=== PATIENT | female | born 1965 | race Caucasian/White ===

== ENCOUNTER 2016-08-07 16:36 | Observation (INO) ==
--- NOTE | 2016-08-07 16:48 | Emergency Department Note ---
Disposition Clinical Impression: Chest pain, Diabetes, Obesity, Hypertension, Hyperlipidemia, Abnormal EKG, Lactic acidosis Disposition: Admitted As Inpatient Condition: Fair Referrals: NO,PCP [Non-Partnered Physician] - Forms: ED Satisfaction Letter General Adult HPI - General Chief complaint: ED Chest Pain Stated complaint: chest pain Time Seen by Provider: 08/07/16 16:45 - History of Present Illness HPI Narrative: 50-year-old female reports to the emergency department via EMS concerned with chest pain mostly on the left side. The pain started while she was walking today. She is known to be diabetic hypertensive and hypercholesterolemic. She states she has not had any cardiac testing for 10 years. She has never had a cardiac stent or known NH. She has no history of PE DVT or cancer. The patient recently had a gallbladder evaluation which was negative. She describes no abdominal pain vomiting or diarrhea. The patient states her primary care physician thinks she may have Parkinson's disease, she has had intermittent stuttering or dysarthria over the last 30 days and she reports she is scheduled for a neurologic evaluation. She has no personal history of brain aneurysm or tumor or brain surgery. She denies any previous brain imaging.. The patient has had no unilateral arm weakness or numbness no history of confusion or mejia acute dysarthria or sudden visual changes. No confusion or seizure. The patient has had no cough or fever or syncope. He patient reports her chest pain started about a half hour prior to arrival. EMS reports an EKG which shows sinus tachycardia. - Related Data Home Medications Medication Instructions Recorded Confirmed Albuterol Sulfate [Albuterol 2 puff IH Q4H PRN 08/07/16 08/07/16 Inhaler] Aspirin Enteric Coated [Aspirin EC] 81 mg PO DAILY 08/07/16 08/07/16 Dicyclomine [Bentyl] 20 mg PO QID 08/07/16 08/07/16 Estradiol [Estrace] 1 mg PO DAILY 08/07/16 08/07/16 Glimepiride [Amaryl] 2 mg PO QAM 08/07/16 08/07/16 Nystatin POWDER [Nystop] 1 appl TP TID PRN 08/07/16 08/07/16 Omeprazole [PriLOSEC] 20 mg PO DAILY 08/07/16 08/07/16 Sertraline [Zoloft] 50 mg PO DAILY 08/07/16 08/07/16 Simvastatin [Zocor] 10 mg PO HS 08/07/16 08/07/16 hydroCHLOROthiazide 12.5 mg PO DAILY 08/07/16 08/07/16 [Hydrochlorothiazide] Allergies Allergy/AdvReac Type Severity Reaction Status Date / Time No Known Allergies Allergy Verified 06/18/16 17:37 All systems ED: reviewed and negative except as stated. 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 Absent: scleral icterus, conjunctival injection, miosis, mydriasis - ENT ENT exam: normal exam, normal oropharynx, mucous membranes moist, TM's normal bilaterally, normal external ear exam - Neck Neck exam: Present: normal inspection, full ROM, trachea midline. Absent: tenderness - Chest Chest inspection: Present: symmetric chest wall rise. Absent: tenderness - Respiratory Respiratory exam: Present: normal lung sounds bilaterally. Absent: respiratory distress, wheezes, accessory muscle use, prolonged expiratory phase - Cardiovascular Cardiovascular exam: Present: regular rate, normal rhythm, normal heart sounds - Abdominal Exam Abdominal exam: Present: soft, Non-Tender, normal bowel sounds. Absent: tenderness, distention, guarding, rebound, rigidity, pulsatile mass - Extremities Exam Extremities exam: Present: normal inspection, full ROM, normal capillary refill. Absent: tenderness, pedal edema, joint swelling, calf tenderness - Expanded Lower Extremity Exam Lower leg exam: Absent: Homans' sign Neurovascular/Tendon exam: Present: normal capillary refill. Absent: motor deficit, sensory deficit, tendon deficit, extremity cold to touch, pallor - Back Exam Back exam: Present: normal inspection, full ROM. Absent: tenderness, CVA tenderness (R), CVA tenderness (L), vertebral tenderness - Neurological Exam Neurological exam: Present: alert, oriented X3, CN II-XII intact. Absent: motor sensory deficit - Psychiatric Psychiatric exam: Present: normal affect, normal mood - Skin Skin exam: Present: warm, dry, intact, normal color. Absent: rash, cyanosis, diaphoresis, erythema, pallor, mottled Course Vital Signs Temperature 98.3 F 08/07/16 16:40 Pulse Rate 92 08/07/16 16:40 Respiratory Rate 18 08/07/16 16:40 Blood Pressure 137/71 08/07/16 16:40 O2 Sat by Pulse Oximetry 96 08/07/16 16:40 Temperature 98.3 F 08/07/16 16:40 Pulse Rate 92 08/07/16 16:40 Respiratory Rate 18 08/07/16 16:40 Blood Pressure 137/71 08/07/16 16:40 O2 Sat by Pulse Oximetry 96 08/07/16 16:40 Oxygen Delivery Oxygen Delivery Room Air Medical Decision Making - MDM Narrative Medical decision making narrative: The patient is complaining of chest pain, her EKG is abnormal, she has a history of diabetes, hypertension, and hyperlipidemia, she is somewhat obese and has not had cardiac testing for about 10 years. The patient does have an element of lactic acidosis possibly secondary to diabetic medications. Blood cultures and a urinalysis have been ordered and are pending. Aspirin was ordered. The patient declined need for pain medications otherwise. Based on the patient's significant risk factors for acute coronary syndrome in the setting of a chest pain, I thought it would be appropriate to admit the patient to the hospital. I discussed the case with the hospitalist who has accepted the patient to their care. We reviewed the elevated lactate, fluid therapy has been given, white blood cell count normal with no differential shift, CRP low, chest x-ray negative, afebrile, we have elected to order blood cultures and assess urinalysis and repeat lactate. The patient describes no abdominal pain, I detect no skin rash, she denies headache or neck stiffness. Currently we have no clear source for infection, the lactic acidosis may be noninfectious in nature. We have elected to forego antibiotic therapy until if/when a clear source of infection is detected. - Lab Data Lab results reviewed: Yes I reviewed the patient's lab results. Result diagrams: 08/07/16 17:11 08/07/16 17:11 Lab Results 08/07/16 08/07/16 08/07/16 Range/Units 17:11 17:11 17:11 WBC (4.3-11.1) K/mcL RBC (3.82-4.97) M/mcL Hgb (11.5-15.4) g/dL Hct (35.3-44.9) % MCV (83.0-100.0) fL MCH (28.0-33.3) pg MCHC (31.6-35.5) g/dL RDW (11.5-14.5) % Plt Count (140-400) K/mcL MPV (9.4-12.4) fL Immature Gran % (0-4) % Seg Neutrophils % % Lymphocytes % % Monocytes % % Eosinophils % % Basophils % % Neutrophils # (1.6-8.9) K/mcL Lymphocytes # (0.6-4.6) K/mcL Monocytes # (0.0-1.3) K/mcL Eosinophils # (0.0-0.6) K/mcL Basophils # (0.0-0.2) K/mcL PT 9.7 (9.4-12.1) Seconds INR 0.9 APTT 28.1 (26.0-36.0) Seconds D-Dimer 374 (0-500) ng/mLFEU Sodium 143 (136-145) mEq/L Potassium 3.8 (3.5-4.5) mEq/L Chloride 108 (98-109) mEq/L Carbon Dioxide 24 (19-29) mEq/L BUN 10 (7-20) mg/dL Creatinine 0.82 (0.57-1.11) mg/dL Est GFR ( Amer) > 60 (> 60) Est GFR (Non-Af Amer) > 60 (> 60) BUN/Creatinine Ratio 12 (6-26) Glucose 252 H (70-99) mg/dL Calculated Osmolality 304 H (280-300) Lactic Acid 3.0 H (0.5-2.2) mmol/L Calcium 9.4 (8.6-10.8) mg/dL Total Bilirubin 0.2 (0.2-1.2) mg/dL Direct Bilirubin 0.1 (0.0-0.5) mg/dL Indirect Bilirubin 0.1 (0.0-1.2) mg/dL AST 19 (5-34) Units/L ALT 19 (0-55) Units/L Alkaline Phosphatase 67 (38-126) Units/L Troponin I (0-0.03) ng/mL C-Reactive Protein 9 H (Less than 5) mg/L Serum Total Protein 6.9 (6.0-8.3) g/dL Albumin 3.3 L (3.5-5.0) g/dL Globulin 3.6 H (2.4-3.5) g/dL Albumin/Globulin Ratio 0.9 L (1.1-2.2) Lipase 26 (8-78) Units/L 08/07/16 08/07/16 Range/Units 17:11 17:11 WBC 8.8 (4.3-11.1) K/mcL RBC 4.15 (3.82-4.97) M/mcL Hgb 12.2 (11.5-15.4) g/dL Hct 36.5 (35.3-44.9) % MCV 88.0 (83.0-100.0) fL MCH 29.4 (28.0-33.3) pg MCHC 33.4 (31.6-35.5) g/dL RDW 13.3 (11.5-14.5) % Plt Count 265 (140-400) K/mcL MPV 11.3 (9.4-12.4) fL Immature Gran % 0.3 (0-4) % Seg Neutrophils % 65.5 % Lymphocytes % 26.7 % Monocytes % 5.1 % Eosinophils % 1.8 % Basophils % 0.6 % Neutrophils # 5.7 (1.6-8.9) K/mcL Lymphocytes # 2.3 (0.6-4.6) K/mcL Monocytes # 0.5 (0.0-1.3) K/mcL Eosinophils # 0.2 (0.0-0.6) K/mcL Basophils # 0.1 (0.0-0.2) K/mcL PT (9.4-12.1) Seconds INR APTT (26.0-36.0) Seconds D-Dimer (0-500) ng/mLFEU Sodium (136-145) mEq/L Potassium (3.5-4.5) mEq/L Chloride (98-109) mEq/L Carbon Dioxide (19-29) mEq/L BUN (7-20) mg/dL Creatinine (0.57-1.11) mg/dL Est GFR ( Amer) (> 60) Est GFR (Non-Af Amer) (> 60) BUN/Creatinine Ratio (6-26) Glucose (70-99) mg/dL Calculated Osmolality (280-300) Lactic Acid (0.5-2.2) mmol/L Calcium (8.6-10.8) mg/dL Total Bilirubin (0.2-1.2) mg/dL Direct Bilirubin (0.0-0.5) mg/dL Indirect Bilirubin (0.0-1.2) mg/dL AST (5-34) Units/L ALT (0-55) Units/L Alkaline Phosphatase (38-126) Units/L Troponin I 0.00 (0-0.03) ng/mL C-Reactive Protein (Less than 5) mg/L Serum Total Protein (6.0-8.3) g/dL Albumin (3.5-5.0) g/dL Globulin (2.4-3.5) g/dL Albumin/Globulin Ratio (1.1-2.2) Lipase (8-78) Units/L - Radiology Data Radiology results reviewed: Yes I reviewed the patient's radiology results.
[2016-08-07] MEDS ORDERED: Aspirin 325 MG TABLET PO ONE (17:12)
[2016-08-07 17:31] LABS: Basophils # 0.1 K/mcL (0.0-0.2); Basophils % 0.6 %; Eosinophils # 0.2 K/mcL (0.0-0.6); Eosinophils % 1.8 %; Hematocrit 36.5 % (35.3-44.9); Hemoglobin 12.2 g/dL (11.5-15.4); Immature Granulocytes % 0.3 % (0-4); Lymphocytes # 2.3 K/mcL (0.6-4.6); Lymphocytes % 26.7 %; Mean Corpuscular HGB Conc 33.4 g/dL (31.6-35.5); Mean Corpuscular Hemoglobin 29.4 pg (28.0-33.3); Mean Platelet Volume 11.3 fL (9.4-12.4); Monocytes # 0.5 K/mcL (0.0-1.3); Monocytes % 5.1 %; Neutrophils # 5.7 K/mcL (1.6-8.9); Platelet Count 265 K/mcL (140-400); Red Blood Count 4.15 M/mcL (3.82-4.97); Red Cell Distribution Width 13.3 % (11.5-14.5); Segmented Neutrophils % 65.5 %
[2016-08-07 17:36] LABS: INR 0.9; Prothrombin Time 9.7 Seconds (9.4-12.1)
[2016-08-07 17:39] LABS: Activated Partial Thrombo Time 28.1 Seconds (26.0-36.0)
[2016-08-07 17:49] LABS: Alanine Aminotransferase 19 Units/L (0-55); Albumin 3.3 g/dL (3.5-5.0); Albumin/Globulin Ratio 0.9 (1.1-2.2); Alkaline Phosphatase 67 Units/L (38-126); Aspartate Amino Transferase 19 Units/L (5-34); BUN/Creatinine Ratio 12 (6-26); Bilirubin,Direct 0.1 mg/dL (0.0-0.5); Bilirubin,Indirect 0.1 mg/dL (0.0-1.2); Bilirubin,Total 0.2 mg/dL (0.2-1.2); Blood Urea Nitrogen 10 mg/dL (7-20); Calcium 9.4 mg/dL (8.6-10.8); Carbon Dioxide 24 mEq/L (19-29); Chloride 108 mEq/L (98-109); Globulin 3.6 g/dL (2.4-3.5); Glucose 252 mg/dL (70-99); Lipase 26 Units/L (8-78); Osmolality,Calculated 304 (280-300); Potassium 3.8 mEq/L (3.5-4.5); Sodium 143 mEq/L (136-145); Total Protein 6.9 g/dL (6.0-8.3); eGFR For African Americans > 60 (> 60); eGFR For Non-African Americans > 60 (> 60)
[2016-08-07 18:25] LABS: C-Reactive Protein 9 mg/L (Less than 5)
[2016-08-07] MEDS ORDERED: 0.9 % Sodium Chloride 1,000 ML IVC ONE ×2 (18:27→20:09)
[2016-08-07 21:29] LABS: Bilirubin,Urine Negative (Negative); Blood,Urine Negative (Negative); Clarity,Urine Clear (Clear); Color,Urine Yellow (Yellow); Glucose,Urine (UA) 500 mg/dL (Normal); Ketones,Urine Trace mg/dL (Negative); Leukocyte Esterase,Urine Trace (Negative); Nitrite,Urine Negative (Negative); PH,Urine 5.5 pH Units (5.0-8.0); Protein,Urine Negative (Neg-Trace); Specific Gravity,Urine > 1.030 (1.010-1.025); Urobilinogen,Urine Normal (Normal)
[2016-08-07 21:31] LABS: Bacteria,Urine Few per hpf (None-Few); Hyaline Casts,Urine None Seen per lpf (None-Few); RBC,Urine 0-3 per hpf (0-3); Squamous Epithelial Cell,Urine Many per lpf (None-Few)
[2016-08-07 21:40] LABS: Mucus,Urine Few (Few)
[2016-08-07] MEDS ORDERED: Naloxone 0.4 MG/ML INJ IVP PRN (22:44)
--- NOTE | 2016-08-07 23:00 | Internal Med History&Physical ---
Date of Encounter: 08/07/16 Time of Encounter: 22:55 Assessment and Plan (1) Dysarthria Current visit: Yes Status: Acute With reported garbled speech with associated lightheadedness and dizziness on morning of admission. Still with word finding difficulty on exam. Head CT negative. She does have risk factors for CVA/TIA. Brain MRI, echo, carotids, TSH, lipid panel, Hgb A1c pending. Continue home ASA, statin. Consult neurology if needed. Permissive hypertension for now (2) Chest pain Current visit: Yes Status: Acute That occurred on day of admission. Initial troponin negative, EKG without acute ST changes. Last stress test has been over 10 years ago. Low suspicion for ACS as chest pain is reproducible on exam, however she does have risk factors. Cycle troponin check echo and stress test. Consult cardiology if needed Qualifiers: Chest pain type: unspecified Qualified Code(s): R07.9 - Chest pain, unspecified (3) Lactic acidosis Current visit: Yes Status: Acute Lactic acid 3 on arrival, trended down to 1.8. Etiology unknown. No obvious infectious source. Chest x-ray nonacute. Afebrile, no elevated WBC. Check UA. (4) Hypertension Current visit: Yes Status: Acute Per history holding home BP medications to allow for permissive hypertension. Resume in 24-48 hours or if MRI is negative for acute CVA Qualifiers: Hypertension type: essential hypertension Qualified Code(s): I10 - Essential (primary) hypertension (5) Diabetes Current visit: Yes Status: Acute Per history. Control unknown. Hold home oral hypoglycemics. Sliding scale insulin while inpatient. 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 LDL pending Qualifiers: Qualified Code(s): E78.5 - Hyperlipidemia, unspecified (7) DVT prophylaxis Current visit: Yes Status: Acute [facility] Internal Medicine - H&P: HPI Chief complaint: Chest pain lightheadedness dizziness and garbled speech Plans for Post Hospital Care: Home History of present illness: Ms. Kirkpatrick is a 50 year old female with past medical history diabetes hypertension hyperlipidemia and depression who presented to [facility] on 08/07/2016 with complaints of chest pain garbled speech lightheadedness and dizziness. She was placed in observation status for CVA workup and ACS rule out. Information obtained from chart review and patient report. Patient says she felt lightheaded and dizzy off and on throughout the day she feels like her speech was garbled and she had trouble getting her words out. No numbness or tingling no vision changes. She says she was walking with her daughter when she had an acute onset of midsternal chest pain. Chest pain is described as sharp, rates it 7-8/10. Nothing makes better and pressing on her chest makes it worse. No shortness of breath no abdominal pain no nausea vomiting or diarrhea Past Med Surg Social Fam HX - Past Medical History Medical history: diabetes, hyperlipidemia, hypertension Psychiatric history: anxiety, depression - Social History Smoking Status: Never smoker Smokeless Tobacco Status: No Alcohol use: none Drug use: none - Family History Mother Hx Family Cardiac Disorders: No Hx Family Respiratory Disorders: No Hx Family Cancer: Yes (Melanoma) Hx Family GI Disorders: No Hx Family Genitourinary Disorders: No Hx Family Endocrine Disorder: No Hx Family Musculoskeletal Disorders: No Hx Family Neuromuscular Disorders: No Hx Family Neurologic Disorders: No Hx Family HEENT Disorders: No Hx Family Autoimmune Disorders: No Hx Family Reproductive Disorders: No Hx Family Psychosocial Disorders: No Hx Family Medical Disorders: No Internal Medicine - H&P: Meds Albuterol Sulfate [Albuterol Inhaler] 2 puff IH Q4H PRN 08/07/16 [History] Aspirin Enteric Coated [Aspirin EC] 81 mg PO DAILY 08/07/16 [History] Dicyclomine [Bentyl] 20 mg PO QID 08/07/16 [History] Estradiol [Estrace] 1 mg PO DAILY 08/07/16 [History] Glimepiride [Amaryl] 2 mg PO QAM 08/07/16 [History] Nystatin POWDER [Nystop] 1 appl TP TID PRN 08/07/16 [History] Omeprazole [PriLOSEC] 20 mg PO DAILY 08/07/16 [History] Sertraline [Zoloft] 50 mg PO DAILY 08/07/16 [History] Simvastatin [Zocor] 10 mg PO HS 08/07/16 [History] hydroCHLOROthiazide [Hydrochlorothiazide] 12.5 mg PO DAILY 08/07/16 [History] Allergies No Known Allergies Allergy (Verified 06/18/16 17:37) All Systems PM: A 10-system review of systems was performed and is negative for pertinent findings except as documented above in the HPI. - Constitutional Constitutional: no chills, no fever(s), no night sweats - EENT Eyes: no change in vision, no discharge, no pain, no photophobia Ears: no ear discharge, no ear pain, no tinnitus Nose, mouth and throat: no dysphagia, no nasal discharge, no neck pain, no sore throat - Cardiovascular Cardiovascular ROS IM: chest pain, no diaphoresis, no dyspnea, no lightheadedness, no palpitations, no syncope - Respiratory Respiratory: no cough, no dyspnea, no wheezing, no excessive phlegm production - Gastrointestinal Gastrointestinal: no abdominal pain, no diarrhea, no hematemesis, no hematochezia, no melena, no nausea, no vomiting - Genitourinary Genitourinary: no change in urinary stream, no dysuria, no flank pain, no hematuria - Musculoskeletal Musculoskeletal ROS IM: no numbness, no tingling - Integumentary Integumentary IM: no rash, no unusual bruising - Neurological Neurological ROS: abnormal speech, no confusion, no convulsions, no focal weakness, no numbness, no tingling, no tremor(s) - Hematologic/Lymphatic Hematologic/Lymphatic: no easy bruising - Constitutional Vitals: Temp Pulse Resp BP Pulse Ox 97.8 F 58 16 145/74 96 08/07/16 21:45 08/07/16 21:45 08/07/16 21:45 08/07/16 21:45 08/07/16 21:45 General appearance: Present: A&O X 3, no acute distress - Head Head exam: Present: atraumatic, normocephalic - Eye Eye exam: Present: PERRL, conjuntiva pink, sclera anicteric Pupils: Present: PERRL - Neck Neck exam general surgery: Present: supple, trachea midline. Absent: lymphadenopathy - Respiratory Respiratory exam: Present: CTAB. Absent: accessory muscle use, rales, rhonchi, wheezes - Cardiovascular Cardiovascular exam: Present: RRR, +S1, +S2. Absent: diastolic murmur, gallop, rubs, systolic murmur Additional comments: Chest pain with palpation - GI/Abdominal GI/Abdominal exam: Present: normal bowel sounds, soft, no peritoneal signs. Absent: distended, tenderness - Extremities Exam Extremities exam: Present: warm, radial pulses palpable and symetrical. Absent : calf tenderness, cyanotic, pedal edema - Neurological Exam Neurological exam: Present: alert, altered, CN II-XII intact, oriented X3, no focal deficits, strengths equal and symetr throughout. Absent: pronater drift, facial droop, speech deficit - Skin Skin exam: Present: dry, intact Internal Med - H&P Results - Labs CBC & Chem 7: 08/07/16 17:11 08/07/16 17:11 Labs: Urine 08/07/16 Range/Units 21:15 Urine Color Yellow (Yellow) Urine Clarity Clear (Clear) Urine pH 5.5 (5.0-8.0) pH Units Ur Specific [place] > 1.030 H (1.010-1.025) Urine Protein Negative (Neg-Trace) mg/dL Urine Glucose (UA) 500 H (Normal) mg/dL
[2016-08-07] MEDS ORDERED: *HR* Dextrose 50 % in Water (Syg) 50 ML SYRINGE IVP PRN (23:18)
[2016-08-07] MEDS ORDERED: Dextrose Gel 15 GM PO PRN ×2 (23:18)
[2016-08-07] MEDS ORDERED: D5% in Water 1,000 ML IVC PRN (23:18)
[2016-08-07] MEDS ORDERED: *HR* Morphine 2 MG/ML SYRINGE IVP PRN (23:29)
[2016-08-08] MEDS ORDERED: *HR* Enoxaparin 30 MG/0.3 ML SYRINGE SQ SCH (06:00)
[2016-08-08] MEDS ORDERED: Regadenoson 0.4 MG/5 ML SYRINGE IVP ONE ×2 (06:31→06:33)
[2016-08-08 06:50] LABS: Basophils # 0.1 K/mcL (0.0-0.2); Basophils % 0.8 %; Eosinophils # 0.1 K/mcL (0.0-0.6); Eosinophils % 2.1 %; Hematocrit 34.4 % (35.3-44.9); Hemoglobin 11.1 g/dL (11.5-15.4); Immature Granulocytes % 0.3 % (0-4); Lymphocytes # 2.4 K/mcL (0.6-4.6); Lymphocytes % 37.8 %; Mean Corpuscular HGB Conc 32.3 g/dL (31.6-35.5); Mean Corpuscular Hemoglobin 29.3 pg (28.0-33.3); Mean Corpuscular Volume 90.8 fL (83.0-100.0); Mean Platelet Volume 11.3 fL (9.4-12.4); Monocytes # 0.4 K/mcL (0.0-1.3); Monocytes % 6.5 %; Neutrophils # 3.3 K/mcL (1.6-8.9); Platelet Count 244 K/mcL (140-400); Red Blood Count 3.79 M/mcL (3.82-4.97); Red Cell Distribution Width 13.5 % (11.5-14.5); Segmented Neutrophils % 52.5 %
[2016-08-08 07:05] LABS: Alanine Aminotransferase 18 Units/L (0-55); Albumin/Globulin Ratio 0.9 (1.1-2.2); Alkaline Phosphatase 61 Units/L (38-126); Aspartate Amino Transferase 15 Units/L (5-34); BUN/Creatinine Ratio 14 (6-26); Bilirubin,Total 0.3 mg/dL (0.2-1.2); Blood Urea Nitrogen 10 mg/dL (7-20); Calcium 8.8 mg/dL (8.6-10.8); Carbon Dioxide 27 mEq/L (19-29); Chloride 108 mEq/L (98-109); Chol/HDL Ratio 4.4 (0-4.9); Cholesterol 172 mg/dL (< 200); Globulin 3.3 g/dL (2.4-3.5); Glucose 130 mg/dL (70-99); HDL Cholesterol 39 mg/dL (40-59); LDL Cholesterol,Calculated 88 mg/dL (0-99); Osmolality,Calculated 297 (280-300); Potassium 3.7 mEq/L (3.5-4.5); Sodium 143 mEq/L (136-145); Total Protein 6.3 g/dL (6.0-8.3); Triglycerides 226 mg/dL (< 150); eGFR For African Americans > 60 (> 60); eGFR For Non-African Americans > 60 (> 60)
[2016-08-08] MEDS: Insulin LISPRO 300 UNITS/3 ML VIAL SQ SCH ×2 (07:24→12:44)
[2016-08-08 07:25] LABS: Thyroid Stimulating Hormone 2.736 mcIU/mL (0.350-4.840)
[2016-08-08 08:25] LABS: Hemoglobin A1C 7.9 %
[2016-08-08] MEDS ORDERED: Aspirin Enteric Coated 81 MG Tablet PO SCH (09:00)
--- NOTE | 2016-08-08 11:27 | Electrocardiograph Report ---
[address] [address] Test Date: 2016-08-07 Pat Name: Joanie Kirkpatrick Department: 104 Room: 3B54 Gender: F Returned Goods Sorter: AM : 1965 Requested By: Jensen Russell Order Number: [id number] Reading MD: Yesenia Marie Measurements Intervals [place] Rate: 91 P: 0 [place]: 171 QRS: 24 QRSD: 86 T: 46 QT: 351 QTc: 399 Interpretive Statements SINUS RHYTHM Electronically Signed On 08-08-2016 11:25:29 EDT by Yesenia Marie
--- NOTE | 2016-08-08 12:48 | Nuclear Medicine Stress Report ---
Regadenoson Nuclear Stress Name: Joanie Kirkpatrick Date of Study: 08/08/2016 Date: 1965 Ht: 70.0 in Medical Record#: [id number] Age: 50 Wt: Gender: Female Order #: [id number] Location: [facility] IP Room: [facility] Supervising Provider: Kristy Gomez CNP Reading Physician: Juany Nma DO Ordering Physician: Merlyn Ramsey CNP Primary Care Physician: Olivia Nunez MD Stress Technologist: Dread De Santiago CRT Clinical Research Scientist: Pradeep Nolan Indications: Chest Pain Impression: Perfusion imaging was negative for ischemia or infarct. Pharmacologic ECG was negative for ischemia at the level of heart rate achieved. Patient had 3-4/10 chest pain with pharmacologic stress. Gated EF = >70%. Recommend clinical correlation. History: Hypertension Diabetes Hypercholesteremia Stress Test Summary: Stress Test Type: Pharmacologic Baseline Information: Initial Heart Rate: 70 Blood Pressure: 130/80 Stress Information: Test Terminated Due to (primary): As per protocol Maximum Blood Pressure: 134/74 Maximum Heart Rate: 112 Percent Maximum Heart Rate Achieved: 65 Double Product: 15041 METS Reached: 1 Symptoms: Chest pain Nuclear Summary: SPECT myocardial perfusion imaging using Tc99m Sestamibi given intravenously was performed at rest and following cardiac stress testing. The resting images were obtained following initial dose of 11.7 mCi. Following stress an additional dose of 31.4 mCi was given at peak exercise or 30 seconds post regadenoson infusion. Medication Given: Time Medication Dose Units Route Findings: Stress Note * Resting ECG demonstrated normal sinus rhythm with nonspecific ST abnormalities. * Pharmacologic stress ECG is negative for ischemia at level of heart rate achieved. * No arrhythmias were noted during stress. * Patient complained of 3-4/10 chest pain during pharmacologic stress. Hemodynamic responses * Normal hemodynamic responses to pharmacologic stress. Study Quality * Study quality was fair. Left Ventricle * The left ventricle is not dilated. TID * No evidence of transient ischemic dilatation. Lung Uptake * There is no evidence of increase lung uptake. NORMALS * Normal wall motion. PERFUSION * There is a small sized, mild intensity fixed perfusion defect involving the apical lateral wall. Wall motion is normal. Findings represent artifact. * Other areas demonstrate normal rest and stress perfusion. Updated by Juany Nam on 08/08/2016 12:43:57 PM electronically signed on 08/08/2016 12:44:47 PM with status of Final
[2016-08-08 14:52] VITALS: BP 151/79
[2016-08-08] MEDS ORDERED: Sucralfate 1 GM TABLET PO ONE (15:11)
--- NOTE | 2016-08-08 15:26 | ECHO - Doppler Report ---
Echocardiogram Name: Joanie Kirkpatrick Date of Study: 08/08/2016 Date: 1965 Ht: 61.0 in Medical Record#: [id number] Age: 50 Wt: 211.0 lb Gender: Female BSA: 1.93 Order #: [id number] Location: [facility] Room #: 3B54 Reading Physician: Juany Nam DO Travel Sales Consultant: Merlyn Guadarrama RDCS, RVT Ordering Physician: Silke Mac CNP Primary Physician: Olivia Nunez MD Indications: Chest pain Impressions: LVEF 60%. Normal left ventricular size and systolic function. There is evidence of moderate diastolic dysfunction of the left ventricle. Normal right ventricular size and function. No significant valvular dysfunction. No pulmonary hypertension. Left Ventricular Wall Motion: Rest Echo Findings All wall segments showed normal motion. Findings: Study Quality * Technically challenging due to body habitus. ECG Findings * Normal sinus rhythm. Left Ventricle * Moderate left ventricular diastolic dysfunction. * Normal LV size and wall thickness. * LVEF 60%. Aorta * Normally sized aortic root. Left Atrium * Normal left atrial size. Aortic Valve * No aortic regurgitation. * Aortic valve not well visualized. * No aortic stenosis. Mitral Valve * Normal mitral valve structure. * No mitral regurgitation. * No mitral stenosis. Tricuspid Valve * Tricuspid valve not well visualized. * No tricuspid regurgitation. * Estimated RA pressure is 3 mmHg. Pulmonic Valve * Pulmonic valve is not well visualized. * No pulmonic stenosis. * Trace pulmonic regurgitation. Pulmonary Artery * Pulmonary artery not well visualized. Right Ventricle * Normal right ventricular structure and function. Right Atrium * Normal right atrial size. Pericardium * There is no pericardial effusion present. Interatrial Septum * Interatrial septum not well evaluated. IVC * Normal IVC dimensions and inspiratory collapse. History Hypertension Diabetes Hypercholesteremia 11-15-2014 a Previous Echo was performed. Measurements: BP: 129/ 83 2D Normal Values RVIDd: 2.20 cm <2.7 cm IVSd: 1.00 cm 0.6 - 1.0 cm LVIDd: 4.70 cm 3.7 - 5.6 cm LVPWd: .90 cm 0.6 - 1.1 cm LVIDs: 3.10 cm 1.5 - 3.6 cm LA: 3.70 cm 2.0 - 4.0cm %FS: 34.00 cm >25 % LA volume: 47 Mitral Valve Peak E:1.16 m/sec Peak A:1.05 m/sec E/A Ratio:1.1 Peak E' Lat Lui:8.29 cm/s Peak E' Med Lui:6.14 cm/s E/E' Lat Ratio:14 E/E' Med Ratio:18.9 Updated by Juany Nam on 08/08/2016 3:22:00 PM electronically signed on 08/08/2016 3:22:30 PM with status of Final Wall Motion Stephens: 1=Normal, 2=Hypokinesis, 3=Akinesis, 4=Dyskinesis, 5=Aneurysmal, 6=Hyperkinetic, X=Not Visualized (Blank)=Missing
--- NOTE | 2016-08-08 15:41 | Discharge Summary ---
Date of Encounter: 08/08/16 Time of Encounter: 15:00 - Discharge Diagnosis (1) Chest pain Priority: Primary Status: Acute Comments: Pt reports sudden onset epigastric/mid-sternal chest pain that began while walking with her daughter yesterday at about 1500. Pt denies radiation, n/v or diaphoresis. She said that it was dull. She has had this pain previously, for approx 6 mos. She denies any known pattern. When questioned, pt states that it did become worse after eating today, but is unable to recognize that with any other episode. . Troponin negative. Echo today shows LVEF 60%, normal systolic function, moderate diastolic dysfunction , no valvular dysfunction and no pulmonary htn. Stress test negative for ischemia or infarct, gated EF = >70%. Pain is reproduceable with palpation and she reports recent GI symptoms and treatment for GERD. I do believe that this is most likely GI related. Qualifiers: Chest pain type: unspecified Qualified Code(s): R07.9 - Chest pain, unspecified (2) GERD (gastroesophageal reflux disease) Priority: Secondary Status: Acute Comments: Chest pain reproduceable with palpation in epigastric area. Pt is treated with Omeprazole and Bentyl, however, she did have some confusion regarding whether or not she is taking the Bentyl or if it was discontinued by GI. Continue Omeprazole, add Carafate 1000mg tid. Qualifiers: Esophagitis presence: without esophagitis Qualified Code(s): K21.9 - Gastro -esophageal reflux disease without esophagitis (3) Diabetes Priority: Secondary Status: Chronic Comments: A1c 7.9. Pt states that she has an appt with staff development educator on 08/20 at [facility] office. Continue home medications. Qualifiers: Diabetes mellitus type: type 2 Diabetes mellitus complication status: with hyperglycemia Diabetes mellitus chcf insulin use: unspecified chcf insulin use status Qualified Code(s): E11.65 - Type 2 diabetes mellitus with hyperglycemia (4) Obesity Priority: Secondary Status: Chronic Comments: Chronic. Lifestyle changes. Pt has an appt with staff development educator on 08/20 at [facility]. Qualifiers: Obesity type: due to excess calories Obesity severity: morbid Qualified Code(s): E66.01 - Morbid (severe) obesity due to excess calories (5) Hypertension Priority: Secondary Status: Chronic Comments: Chronic. Continue home medications. Qualifiers: Hypertension type: essential hypertension Qualified Code(s): I10 - Essential (primary) hypertension (6) Hyperlipidemia Priority: Secondary Status: Chronic Comments: Chronic. Continue home medications. Qualifiers: Hyperlipidemia type: unspecified Qualified Code(s): E78.5 - Hyperlipidemia , unspecified (7) DVT prophylaxis Priority: Secondary Status: Acute Comments: lovenox sq (8) UTI (urinary tract infection) Priority: Secondary Status: Acute Comments: Patient has been treated empirically for a urinary tract infection. Urine showed a trace of leukocyte esterase, 5-15 white blood cells, few bacteria. Culture is pending. She has been getting Rocephin 1 g IV. Previous culture from June, shows that no pathogens were isolated. Will notify patient if culture is positive and will prescribe antibiotic as needed. Qualifiers: Urinary tract infection type: acute cystitis Hematuria presence: without hematuria Qualified Code(s): N30.00 - Acute cystitis without hematuria - Discharge Medications Prescriptions: Sucralfate [Carafate] 1 gm PO TID #120 tablet Home Medications: Albuterol Sulfate [Albuterol Inhaler] 2 puff IH Q4H PRN 08/07/16 [History] Aspirin Enteric Coated [Aspirin EC] 81 mg PO DAILY 08/07/16 [History] Dicyclomine [Bentyl] 20 mg PO QID 08/07/16 [History] Estradiol [Estrace] 1 mg PO DAILY 08/07/16 [History] Glimepiride [Amaryl] 2 mg PO QAM 08/07/16 [History] Nystatin POWDER [Nystop] 1 appl TP TID PRN 08/07/16 [History] Omeprazole [PriLOSEC] 20 mg PO DAILY 08/07/16 [History] Sertraline [Zoloft] 50 mg PO DAILY 08/07/16 [History] Simvastatin [Zocor] 10 mg PO HS 08/07/16 [History] hydroCHLOROthiazide [Hydrochlorothiazide] 12.5 mg PO DAILY 08/07/16 [History] Nitrofurantoin Monohyd/M-Cryst [Macrobid 100 mg Capsule] 100 mg PO BID #10 capsule 08/08/16 [Rx] Sucralfate [Carafate] 1 gm PO TID #120 tablet 08/08/16 [Rx] Allergies/Adverse Reactions: Allergies No Known Allergies Allergy (Verified 06/18/16 17:37) Procedures/tests Complete & Pending: Procedures Performed prior 72 hours Category Date Time Status NM arun perf SPECT multi [NM] Routine Exams 08/07/16 23:26 Taken MR head/brain wo con [MR] Routine MRI 08/08/16 08:23 Completed EV carotid duplex imaging BI Routine Y 08/08/16 23:08 Completed EV echocardiogram Routine Y 08/08/16 22:49 Completed SP pharm nuclear stress Routine Y 08/07/16 23:26 Completed Date of admission: 08/07/16 20:51 Primary care physician: Olivia Nunez Discharging clinician: Merlyn Ramsey Anticipated date of discharge: 08/08/16 - Patient Status Disposition: Home, Self-Care Condition: Good Functional capacity at discharge: independent ambulation Overall status at discharge: patient is back to baseline - Discharge Instructions Follow Up With: Olivia Nunez MD [Primary Care Provider] - 08/15/16 1:45 pm Additional Instructions: Please resume your home medications. Follow up with your primary care physician and with GI for a follow up appointment, you may need a scope. Start Carafate tonight with dinner. Take as directed. Return to the ER as needed for any other problems or concerns or if your pain returns or worsens. Try to eat a bland diet today, low fat, no fried food, no spices, no dairy or sauces, no citrus. Advance your diet slowly as tolerated. - Diet and Activity Activity: resume usual activities as tolerated Diet: low fat, low cholesterol, other Hospital course: Ms. Kirkpatrick is a 50 year old female with medical history of diabetes, hyperlipidemia, hypertension, GERD. Patient reports dull chest pain, low midsternal/epigastric area without radiation. She denies nausea, vomiting, diaphoresis, fever, chills. Pain began while she was walking with her daughter yesterday at about 3 PM. She says that she has had this pain in the past and initially states that she notices no pattern, however she did notice it was worse today after eating lunch. The area is tender to palpation. She has a history of GERD and takes omeprazole, and was taking dicyclomine. There seemed to be consistent confusion about whether she was actually supposed to be taking the dicyclomine or whether he had been discontinued by GI. Patient had an MRI of head and brain without contrast. It showed no evidence of acute infarct, mild chronic microvascular white ischemic disease and, right mastoid effusion. Patient had a pharmacologic stress test today was negative for ischemia or infarct, gated EF greater than 70%. Echocardiogram showed LVEF 60% normal systolic function moderate diastolic dysfunction. Patient states at the time of the event she had slurred speech. She also reports a year-long history of hand tremor, left worse than right. She has been seen by her primary care physician before this and was sent to neurology for evaluation for new onset Parkinson's disease. She is waiting on neurology to call for an appointment. Patient does not have slurred speech at this time, her grasps are equal, she has no pronator drift, her lower extremity strength is strong and equal bilaterally both independently and against resistance. Patient's A1c is elevated at 7.9. We spoke about following the diet being diligent with taking medications. She has an appointment with the staff development educator at [facility] on August 20 of this year. Patient has been treated empirically for a UTI. Culture and sensitivity are not back yet the preliminary is not back yet either. Urinalysis revealed trace of leukocyte esterase, 5-15 white cells, many epithelial cells, few bacteria. A culture was indicated by the UA. Will send patient home on Macrobid twice a day for 5 days. She will have to be notified if there is a need for change or discontinuation of antibiotic. She was treated here with Rocephin IV. patient initially presented with lactic acidosis. Lactic acid was 3.0 by lab, with fluid in his resolved and is 1.8 today. Although other labs are within normal limits. Vital signs are stable. Patient is appropriate and stable for discharge. - Time Spent with Patient Total time spent providing and/or coordinating discharge services: Less than 30 minutes - Constitutional Vitals: Temp Pulse Resp BP Pulse Ox 97.7 F 76 15 151/79 97 08/08/16 14:52 08/08/16 14:52 08/08/16 14:52 08/08/16 14:52 08/08/16 14:52 General appearance: Present: A&O X 3, pleasant, no acute distress, answers questions appropriately - Head Head exam: Present: normal inspection - ENT ENT exam: Present: mucous membranes moist, normal exam, normal external ear exam - Neck Neck exam general surgery: Present: full ROM, normal inspection. Absent: lymphadenopathy, tenderness - Respiratory Respiratory exam: Present: CTAB. Absent: rales, respiratory distress, rhonchi, wheezes - Cardiovascular Cardiovascular exam: Present: RRR, +S1, +S2. Absent: diastolic murmur, systolic murmur - GI/Abdominal GI/Abdominal exam: Present: normal bowel sounds, soft, tenderness. Absent: distended, hernia, hepatomegaly, pulsatile mass, rigid Additional comments: Tender to palpation in epigastric area - Extremities Exam Extremities exam: Present: normal capillary refill, normal inspection, warm, radial pulses palpable and symetrical. Absent: pedal edema, tenderness - Neurological Exam Neurological exam: Present: alert, oriented X3, no focal deficits, strengths equal and symetr throughout. Absent: facial droop, speech deficit
[2016-08-08] MEDS ORDERED: Insulin LISPRO 300 UNITS/3 ML VIAL SQ SCH (21:00)
--- NOTE | 2016-08-09 14:11 | Carotid Imaging Report ---
Carotid Duplex Patient Name:Joanie Kirkpatrick Order Number:[id number] Procedure Date:08/08/2016 Date:1965Age:50 yrs Gender:Female Lt BP:131 / 83 mmHg Rt.BP:129 / 83 mmHgHeart Rate: Location:[facility] Room #: 3B54 Associate Professor Of Criminal Justice:Merlyn Guadarrama RDCS, RVT Referring MD:Silke Mac CHILD CAREGIVER chart changer:Olivia Nunez MD Reading MD:Dalton Perez MD Primary Indications:Transient Ischemic Attack Risk Factors Yes/No Hypertension Yes Diabetes Yes Hypercholesterolemia Yes Hx of TIA No Hx of CVA No Impressions: Findings: Bilateral carotid system has nonstenotic plaque. Recommendations: After imaging the patient returned to their room. Test completed on 08/08/2016 at 2:37:42 pm. Findings Carotid Duplex: Right: There is nonstenotic plaque in the right distal common carotid artery. There is smooth homogeneous plaque. There is nonstenotic plaque in the right bifurcation. There is irregular homogeneous plaque. There is nonstenotic plaque in the right proximal internal carotid artery. There is smooth homogeneous plaque. There is antegrade spectral Doppler flow patterns in the right vertebral artery. Left: There is antegrade spectral Doppler flow patterns in the left vertebral artery. Prior Study: No prior study available for comparison. Carotid Results Right PSV EDV Assessment Proximal CCA 66 13 Normal Mid CCA 66 15 Normal Distal CCA 61 14 Non Stenotic Plaque Bifurcation 86 22 Non Stenotic Plaque Proximal ICA 86 29 Non Stenotic Plaque Mid ICA 74 21 Normal Distal ICA 62 14 Normal ECA 96 11 Normal Vertebral Artery 29 11 Antegrade Flow Left PSV EDV Assessment Proximal CCA 83 20 Normal Mid CCA 65 20 Normal Distal CCA 58 20 Normal Bifurcation 56 20 Normal Proximal ICA 81 26 Normal Mid ICA 72 29 Normal Distal ICA 86 29 Normal ECA 102 16 Normal Vertebral Artery 36 15 Antegrade Flow Ratio's Right ICA/CCA Ratio: 1.30 ICA/CCA Values: 86/66 Left ICA/CCA Ratio: 1.32 ICA/CCA Values: 86/65 Updated by Dalton Perez MD on 08/09/2016 2:06:26 PM electronically signed on 08/09/2016 2:06:43 PM with status of Final
== END 2016-08-08 17:25 | disposition home or self-care (01) ==
LOC: EMEROO 16:36 → 3BNU 16:36
PROVIDERS: ADMIT Internal Medicine; ATTEND Registered Nurse

== ENCOUNTER 2017-05-30 12:02 | Observation (INO) ==
[2017-05-30] MEDS ORDERED: 0.9 % Sodium Chloride 1,000 ML IVC ONE (12:28)
--- NOTE | 2017-05-30 12:31 | Emergency Department Note ---
Disposition Clinical Impression: Hyperglycemia Chest pain Qualifiers: Chest pain type: unspecified Qualified Code(s): R07.9 - Chest pain, unspecified Diabetes Qualifiers: Diabetes mellitus type: type 2 Diabetes mellitus chcf insulin use: without long lines operator use Diabetes mellitus complication status: with unspecified complications Qualified Code(s): E11.8 - Type 2 diabetes mellitus with unspecified complications Disposition: Admitted As Inpatient Condition: Fair Referrals: Olivia Nunez MD [Primary Care Provider] - Forms: ED Satisfaction Letter, Work/School Release Time of Disposition: 13:31 Chest Pain HPI - General Chief Complaint: ED General Medical Stated Complaint: CP Time Seen by Provider: 05/30/17 12:27 Source: patient, EMS Limitations: no limitations Vital Signs Reviewed: Yes Nursing Notes Reviewed: Yes - History of Present Illness HPI Narrative: Presents with chest pain which is a heaviness and began at 11:30 and did improve but never resolved and is constant and she did have radiation to left arm. Mounds flushed but no diaphoresis. No dyspnea. Not worse with exertion it began while she was standing at a bus stop at 11:30. Has also had elevated blood sugar for the last days and this was reading on her blood sugar monitor elevated so she does not know the exact number and she has had diabetes for the last 3 years which is type II and she does take oral medications but no insulin. No pleuritic aspect or chest pain. No radiation to the back. No pain or swelling of the lower extremities. Social history: No smoking or alcohol or drugs Severity scale (1-10): 8 - Related Data Home Medications Medication Instructions Recorded Confirmed Aspirin Enteric Coated [Aspirin EC] 81 mg PO DAILY 08/07/16 05/30/17 Estradiol [Estrace] 1 mg PO DAILY 08/07/16 05/30/17 Glimepiride [Amaryl] 2 mg PO QAM 08/07/16 05/30/17 Sertraline [Zoloft] 50 mg PO DAILY 08/07/16 05/30/17 Simvastatin [Zocor] 10 mg PO HS 08/07/16 05/30/17 Buprenorphine HCl/Naloxone HCl 1 each SL BID 10/14/16 05/30/17 [Suboxone 8 mg-2 mg Sl Film] Lisinopril [Zestril] 20 mg PO DAILY 10/14/16 05/30/17 SitaGLIPtin [Januvia] 100 mg PO DAILY 05/30/17 05/30/17 Previous Rx's Medication Instructions Recorded EPINEPHrine [Epipen] 0.3 mg IM ONCE PRN #1 kit 08/09/16 Allergies Allergy/AdvReac Type Severity Reaction Status Date / Time sulfamethoxazole AdvReac Diarrhea Verified 05/30/17 12:51 [From Bactrim] trimethoprim [From Bactrim] AdvReac Diarrhea Verified 05/30/17 12:51 Review of Systems: Constitutional: No fever Vision: No blurred vision ENT: No rhinorrhea Respiratory: No cough Allergic: No allergies : No blood in urine GI: No blood in stool Hematologic: No bruising Dermatologic: No skin rash Musculoskeletal: No pain in the extremities Neuro: No numbness of the extremities Chest Pain PMH - Past Medical History Medical history: Reports: diabetes, hyperlipidemia, hypertension Surgical history: Reports: hysterectomy Psychiatric history: Reports: anxiety, depression 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 history: Reports: no VOCATIONAL 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 history - Social History Smoking Status: Never smoker Alcohol use: Reports: none Drug use: Reports: none Physical Exam CONSTITUTIONAL: Well-appearing; well-nourished; A&O X 3, in no apparent distress HEAD: Normocephalic; atraumatic EYES: PERRL, no scleral icterus NOSE: The nose is normal in appearance without rhinorrhea NECK: No JVD or distended neck veins RESP: Normal chest excursion with respiration; breath sounds clear and equal bilaterally; no wheezes, rhonchi, or rales CARD: Regular rhythm, without murmurs, rub or gallop ABD: Non-distended; non-tender, soft, without rigidity, rebound or guarding,no pulsatile mass CHEST: There is pain with palpation anterior chest wall but this area is normal in appearance SKIN: Normal for age and race; warm and dry without diaphoresis ; no apparent lesions EXTREMITIES: Pulses are 2 plus and equal times 4 extremities, no peripheral edema or calf muscle pain - General Limitations: no limitations General appearance: alert, in no apparent distress Course Vital Signs Temperature 98.3 F 05/30/17 12:05 Pulse Rate 116 05/30/17 12:05 Respiratory Rate 16 05/30/17 12:05 Blood Pressure 141/90 05/30/17 12:05 O2 Sat by Pulse Oximetry 98 05/30/17 12:05 Temperature 98.3 F 05/30/17 12:05 Pulse Rate 102 05/30/17 13:37 Respiratory Rate 14 05/30/17 13:37 Blood Pressure 149/83 05/30/17 13:37 O2 Sat by Pulse Oximetry 96 05/30/17 13:37 Oxygen Delivery Oxygen Delivery Room Air Chest Pain - MDM Narrative Medical decision making narrative: Patient does have labs ordered and EKG and IV fluids, chest x-ray, results are pending. She is on the monitor. She is bright and alert and stable in appearance. She has not had any extra dietary changes, she has been taking her blood sugar medications as scheduled. 1231 Did review the patient's labs with significant hyperglycemia but I do not find changes suggestive of diabetic ketoacidosis or HHS and so the patient will receive insulin subcutaneous 14 units and I did discuss this with the hospitalist was comfortable with this approach. She did receive 1 L of IV fluid which also decreased the sugar level by about 20% and the patient will be admitted for further evaluation of the chest pain as she does have an EKG showing sinus tachycardia with ischemic EKG changes inferior with her specifically ST changes. No evidence of arrhythmia. Chest x-ray negative. I did speak with the hospitalist who accepts the patient for admission. Patient is now admitted. 1330 I did just check on the patient and she is pain-free at this time 1422 - Medical Records Medical records reviewed: Yes I reviewed the patient's medical records. - Lab Data Lab results reviewed: Yes I reviewed the patient's lab results. Result diagrams: 05/30/17 12:44 05/30/17 12:44 Lab Results 05/30/17 05/30/17 05/30/17 Range/Units 12:44 12:44 12:44 WBC 6.1 (4.3-11.1) K/mcL RBC 4.26 (3.82-4.97) M/mcL Hgb 12.4 (11.5-15.4) g/dL Hct 39.2 (35.3-44.9) % MCV 92.0 (83.0-100.0) fL MCH 29.1 (28.0-33.3) pg MCHC 31.6 (31.6-35.5) g/dL RDW 13.2 (11.5-14.5) % Plt Count 235 (140-400) K/mcL MPV 11.9 (9.4-12.4) fL Immature Gran % 0.5 (0-4) % Seg Neutrophils % 63.9 % Lymphocytes % 27.8 % Monocytes % 6.3 % Eosinophils % 0.8 % Basophils % 0.7 % Neutrophils # 3.9 (1.6-8.9) K/mcL Lymphocytes # 1.7 (0.6-4.6) K/mcL Monocytes # 0.4 (0.0-1.3) K/mcL Eosinophils # 0.1 (0.0-0.6) K/mcL Basophils # 0.0 (0.0-0.2) K/mcL Sodium 135 L (136-145) mEq/L Potassium 4.6 (3.5-5.1) mEq/L Chloride 104 (98-107) mEq/L Carbon Dioxide 23 (23-29) mEq/L BUN 11 (6-20) mg/dL Creatinine 0.76 (0.60-1.20) mg/dL Est GFR ( Amer) > 60 (> 60) Est GFR (Non-Af Amer) > 60 (> 60) BUN/Creatinine Ratio 14 (6-26) Glucose 782 H* (70-105) mg/dL Calculated Osmolality 317 H (280-300) Calcium 8.9 (8.6-10.3) mg/dL Total Bilirubin 0.4 (0.3-1.0) mg/dL Direct Bilirubin 0.1 (0.0-0.2) mg/dL Indirect Bilirubin 0.3 (0.0-1.2) mg/dL AST 29 (13-39) Units/L ALT 26 (7-52) Units/L Alkaline Phosphatase 79 (34-104) Units/L Troponin I < 0.03 (< 0.04) ng/mL Serum Total Protein 6.2 L (6.4-8.9) g/dL Albumin 3.6 (3.5-5.7) g/dL Globulin 2.6 (2.4-3.5) g/dL Albumin/Globulin Ratio 1.4 (1.1-2.2) Urine Color (Yellow) Urine Clarity (Clear) Urine pH (5.0-8.0) pH Units Ur Specific [place] (1.010-1.025) Urine Protein (Neg-Trace) mg/dL Urine Glucose (UA) (Normal) mg/dL Urine Ketones (Negative) mg/dL Urine Blood (Negative) Urine Nitrite (Negative) Urine Bilirubin (Negative) Urine Urobilinogen (Normal) mg/dL Ur Leukocyte Esterase (Negative) Ur Culture Indicated? (NO) 05/30/17 Range/Units 13:03 WBC (4.3-11.1) K/mcL RBC (3.82-4.97) M/mcL Hgb (11.5-15.4) g/dL Hct (35.3-44.9) % MCV (83.0-100.0) fL MCH (28.0-33.3) pg MCHC (31.6-35.5) g/dL RDW (11.5-14.5) % Plt Count (140-400) K/mcL MPV (9.4-12.4) fL Immature Gran % (0-4) % Seg Neutrophils % % Lymphocytes % % Monocytes % % Eosinophils % % Basophils % % Neutrophils # (1.6-8.9) K/mcL Lymphocytes # (0.6-4.6) K/mcL Monocytes # (0.0-1.3) K/mcL Eosinophils # (0.0-0.6) K/mcL Basophils # (0.0-0.2) K/mcL Sodium (136-145) mEq/L Potassium (3.5-5.1) mEq/L Chloride (98-107) mEq/L Carbon Dioxide (23-29) mEq/L BUN (6-20) mg/dL Creatinine (0.60-1.20) mg/dL Est GFR ( Amer) (> 60) Est GFR (Non-Af Amer) (> 60) BUN/Creatinine Ratio (6-26) Glucose (70-105) mg/dL Calculated Osmolality (280-300) Calcium (8.6-10.3) mg/dL Total Bilirubin (0.3-1.0) mg/dL Direct Bilirubin (0.0-0.2) mg/dL Indirect Bilirubin (0.0-1.2) mg/dL AST (13-39) Units/L ALT (7-52) Units/L Alkaline Phosphatase (34-104) Units/L Troponin I (< 0.04) ng/mL Serum Total Protein (6.4-8.9) g/dL Albumin (3.5-5.7) g/dL Globulin (2.4-3.5) g/dL Albumin/Globulin Ratio (1.1-2.2) Urine Color Yellow (Yellow) Urine Clarity Clear (Clear) Urine pH 6.5 (5.0-8.0) pH Units Ur Specific [place] 1.027 H (1.010-1.025) Urine Protein Negative (Neg-Trace) mg/dL Urine Glucose (UA) >=1000 H (Normal) mg/dL Urine Ketones Negative (Negative) mg/dL Urine Blood Negative (Negative) Urine Nitrite Negative (Negative) Urine Bilirubin Negative (Negative) Urine Urobilinogen Normal (Normal) mg/dL Ur Leukocyte Esterase Negative (Negative) Ur Culture Indicated? NO (NO) - Radiology Data Radiology results reviewed: Yes I reviewed the patient's radiology results.
[2017-05-30 12:55] LABS: Basophils % 0.7 %; Eosinophils # 0.1 K/mcL (0.0-0.6); Eosinophils % 0.8 %; Hematocrit 39.2 % (35.3-44.9); Hemoglobin 12.4 g/dL (11.5-15.4); Immature Granulocytes % 0.5 % (0-4); Lymphocytes # 1.7 K/mcL (0.6-4.6); Lymphocytes % 27.8 %; Mean Corpuscular HGB Conc 31.6 g/dL (31.6-35.5); Mean Corpuscular Hemoglobin 29.1 pg (28.0-33.3); Mean Platelet Volume 11.9 fL (9.4-12.4); Monocytes # 0.4 K/mcL (0.0-1.3); Monocytes % 6.3 %; Neutrophils # 3.9 K/mcL (1.6-8.9); Platelet Count 235 K/mcL (140-400); Red Blood Count 4.26 M/mcL (3.82-4.97); Red Cell Distribution Width 13.2 % (11.5-14.5); Segmented Neutrophils % 63.9 %
[2017-05-30 13:12] LABS: Troponin I < 0.03 ng/mL (< 0.04)
[2017-05-30 13:14] LABS: Albumin 3.6 g/dL (3.5-5.7); Albumin/Globulin Ratio 1.4 (1.1-2.2); Bilirubin,Direct 0.1 mg/dL (0.0-0.2); Bilirubin,Indirect 0.3 mg/dL (0.0-1.2); Bilirubin,Total 0.4 mg/dL (0.3-1.0); Globulin 2.6 g/dL (2.4-3.5); Total Protein 6.2 g/dL (6.4-8.9)
[2017-05-30 13:15] LABS: Bilirubin,Urine Negative (Negative); Blood,Urine Negative (Negative); Clarity,Urine Clear (Clear); Color,Urine Yellow (Yellow); Glucose,Urine (UA) >=1000 mg/dL (Normal); Ketones,Urine Negative (Negative); Leukocyte Esterase,Urine Negative (Negative); Nitrite,Urine Negative (Negative); PH,Urine 6.5 pH Units (5.0-8.0); Protein,Urine Negative (Neg-Trace); Specific Gravity,Urine 1.027 (1.010-1.025); Urobilinogen,Urine Normal (Normal)
[2017-05-30 13:21] LABS: BUN/Creatinine Ratio 14 (6-26); Blood Urea Nitrogen 11 mg/dL (6-20); Calcium 8.9 mg/dL (8.6-10.3); Carbon Dioxide 23 mEq/L (23-29); Chloride 104 mEq/L (98-107); Glucose 782 mg/dL (70-105); Osmolality,Calculated 317 (280-300); Potassium 4.6 mEq/L (3.5-5.1); Sodium 135 mEq/L (136-145); eGFR For African Americans > 60 (> 60); eGFR For Non-African Americans > 60 (> 60)
[2017-05-30] MEDS ORDERED: Insulin Regular, Human 100 UNIT/ML SQ ONE (13:28)
[2017-05-30] MEDS ORDERED: *HR* HYDROcodone/Acet 5/325 mg TABLET PO PRN (14:19)
[2017-05-30] MEDS ORDERED: Naloxone 0.4 MG/ML INJ IVP PRN (14:19)
[2017-05-30] MEDS ORDERED: Acetaminophen 325 MG TABLET PO PRN (14:19)
[2017-05-30] MEDS ORDERED: Dextrose Gel 15 GM/37.5 ML TUBE PO PRN ×2 (14:25)
[2017-05-30] MEDS ORDERED: *HR* Dextrose 50 % in Water (Syg) 50 ML SYRINGE IVP PRN (14:25)
[2017-05-30] MEDS ORDERED: D5% in Water 1,000 ML IVC PRN (14:25)
[2017-05-30] MEDS ORDERED: Nitroglycerin 0.4 MG TAB.SUBL SL PRN (14:32)
[2017-05-30] MEDS ORDERED: Ondansetron 4 MG/2 ML VIAL IVP PRN (14:34)
--- NOTE | 2017-05-30 14:42 | Internal Med History&Physical ---
Date of Encounter: 05/30/17 Time of Encounter: 13:45 Assessment and Plan (1) Chest pain Current visit: Yes Status: Acute Acute chest pain that pt. reports began 11:30 this morning as intermittent and centralized chest pressure with radiation to left arm. Reports nitroglycerin 1 and aspirin given to her by mds nurse reduced pain. Previous echo in 08/01 showed LVEF of 60%, normal left ventricular size and and systolic function, evidence of moderate diastolic dysfunction of the left ventricle, normal right ventricular size and function, no significant valvular dysfunction, and no pulmonary hypertension. Nuclear stress test in 08/01 showed perfusion imaging was negative for ischemia or infarct, pharmacologic ECG was negative for ischemia at level of heart rate achieved, patient had 3-4/10 chest pain with pharmacologic stress, gated EF equals > 70%. Initial troponin <0.03. Trend x2. Continuous cardiac telemetry. Aspirin. Lipitor 80 mg NOW. Continue pts. Zocor tomorrow. Nitro PRN. Echocardiogram. NPO at midnight for a.m. nuclear stress test. Consider Cardiology consult if troponins, echo, and/or stress test results are abnormal. Supplemental o2 and SpO2 monitoring PRN. Falls/safety precautions. Pt. discussed w/Dr. Longoria who agrees w/plan of care. Pt. is high risk for further morbidity and cardiac event based on current symptoms, familial risk factors, personal risk factors of HTN and HLD, and recurrent intermittent chest pain previously. Observation. Qualifiers: Chest pain type: other chest pain Qualified Code(s): R07.89 - Other chest pain; R07.8 - Other chest pain (2) Hyperglycemia Current visit: Yes Status: Acute Acute hyperglycemia w/BG of 782 on admission. Pt. reports she has been taking abx on and off since January for H. pylori infection and feels this is causing her hyperglycemia. Pt. given dose of insulin in ED. BG checks ACHS. A1c in a.m. labs. Will start with high-dose sliding scale d/t pts. severe hyperglycemia for BG checks. Medium dose ordered if BG becomes more manageable and to replace high dose if warranted. Consider insulin drip if warranted. Diabetes Education and Diabetes Inpatient Assessment ordered. ADA/cardiac diet. Pt. to be monitored closely. (3) Diarrhea Current visit: Yes Status: Acute Acute diarrhea. Pt. reports taking abx on and off since January for H. pylori infection. C. difficile toxin screen ordered. If positive, pt. to become contact precautions. Qualifiers: Diarrhea type: presumed infectious Qualified Code(s): R19.7 - Diarrhea, unspecified (4) Abnormal CXR Current visit: Yes Status: Acute 1-View CXR today shows alveolar nodular density lateral lower left lung may reflect confluence of shadows measuring 10 mm overlying posterior left rib 10. Correlation with CT chest recommended. CT chest with contrast ordered. (5) HLD (hyperlipidemia) Current visit: Yes Status: Chronic Hx of chronic HLD. Lipid panel in a.m. labs. Continue pts. Zocor. Qualifiers: Hyperlipidemia type: pure hypercholesterolemia Qualified Code(s): E78.00 - Pure hypercholesterolemia, unspecified; E78.0 - Pure hypercholesterolemia (6) HTN (hypertension) Current visit: Yes Status: Chronic Hx of chronic HTN. Monitor pt. and VS. Continue pts. Lisinopril. Qualifiers: Hypertension type: essential hypertension Qualified Code(s): I10 - Essential (primary) hypertension (7) Diabetes Current visit: Yes Status: Chronic Hx of chronic diabetes that is currently not controlled well. BG checks ACHS. A1c in a.m. labs. Diabetes Education and Diabetes Inpatient Assessment ordered. Will hold pts. oral medications and administer sliding scale and hypoglycemic protocol. High and medium dose sliding scales ordered d/t pts. severe hyperglycemia. Qualifiers: Diabetes mellitus type: type 2 Diabetes mellitus senior care insulin use: without rn clinical documentation use Diabetes mellitus complication status: with unspecified complications Qualified Code(s): E11.8 - Type 2 diabetes mellitus with unspecified complications (8) GERD (gastroesophageal reflux disease) Current visit: Yes Status: Chronic Hx of chronic GERD. IVP Zofran 4 mg Q6 PRN for N/V. IVP Protonix 40 mg daily. Qualifiers: Esophagitis presence: without esophagitis Qualified Code(s): K21.9 - Gastro -esophageal reflux disease without esophagitis (9) DVT prophylaxis Current visit: Yes Status: Acute Heparin 5,000 units SQ Q8 for DVT prophylaxis. Monitor pt. for signs of bleeding. Internal Medicine - H&P: HPI Chief complaint: Chest pain Admitted From: Emergency Dept Plans for Post Hospital Care: Home History of present illness: Ms. Krikpatrick is a 51 year old female w/PMH of diabetes, GERD, HLD, and HTN presents from the ED with chief complaint of chest pain that began this morning at approximately 11:30 and presented as intermittent and centralized chest pressure with radiation to her left arm. Patient states she has had intermittent chest pain previously but not to this degree. Patient states she was given aspirin and nitroglycerin 1 by mds nurse which helped relieve the chest pain and reports previous echocardiogram and stress test in July 2016. Patient reports feeling flushed but no diaphoresis or SOB. Patient also reports she has been hyperglycemic for the past several days and has stomach infection (H. pylori) that she has been taking abx for on and off since January. Reports diarrhea. Patient reports she controls her diabetes with oral medications. Patient denies recent illness, fever, chills, nausea, vomiting, diaphoresis, changes in vision, headache, palpitations, abdominal pain, numbness, tingling, constipation, dizziness, lightheadedness, pre-syncope, or syncope. Past Med Surg Social Fam HX - Past Medical History Medical history: diabetes, hyperlipidemia, hypertension Psychiatric history: anxiety, depression - Past Surgical History Surgical History: hysterectomy (Total) - Social History Smoking Status: Never smoker Smokeless Tobacco Status: No Alcohol use: none Drug use: none Current living situation: Home, With Family Activity Level: Independent ambulation Recent Out of Country Travel Within the Last 8 Weeks: No Exposure or Possible Exposure to Illness During Travel: No - Family History Mother Race: Family Member Ethnicity: Non- Living Status: Still Living Hx Family Cancer: Yes (Melanoma) Father Race: Family Member Ethnicity: Non- Living Status: Still Living Hx Family Cardiac Disorders: Yes (Angina) Brother Race: Family Member Ethnicity: Non- Living Status: Still Living Hx Family Endocrine Disorder: Yes (DM) Sister Race: Family Member Ethnicity: Non- Living Status: Still Living Hx Family Medical Disorders: No Internal Medicine - H&P: Meds Aspirin Enteric Coated [Aspirin EC] 81 mg PO DAILY 08/07/16 [History] Estradiol [Estrace] 1 mg PO DAILY 08/07/16 [History] Glimepiride [Amaryl] 2 mg PO QAM 08/07/16 [History] Sertraline [Zoloft] 50 mg PO DAILY 08/07/16 [History] Simvastatin [Zocor] 10 mg PO HS 08/07/16 [History] EPINEPHrine [Epipen] 0.3 mg IM ONCE PRN #1 kit 08/09/16 [Rx] Buprenorphine HCl/Naloxone HCl [Suboxone 8 mg-2 mg Sl Film] 1 each SL BID [History] Lisinopril [Zestril] 20 mg PO DAILY 10/14/16 [History] SitaGLIPtin [Januvia] 100 mg PO DAILY 05/30/17 [History] 3 Allergy/AdvReac Type Severity Reaction Status Date / Time sulfamethoxazole AdvReac Diarrhea Verified 05/30/17 12:51 [From Bactrim] trimethoprim [From Bactrim] AdvReac Diarrhea Verified 05/30/17 12:51 All Systems PM: A 10-system review of systems was performed and is negative for pertinent findings except as documented above in the HPI. - Constitutional Constitutional: no chills, no fever(s), no night sweats - EENT Eyes: no change in vision, no discharge, no pain, no photophobia Ears: no ear discharge, no ear pain, no tinnitus Nose, mouth and throat: no dysphagia, no nasal discharge, no neck pain, no sore throat - Breasts Breasts: as per HPI - Cardiovascular Cardiovascular ROS IM: as per HPI, chest pain (Pressure in central chest w/ radiation to left arm), no diaphoresis, no dyspnea, no lightheadedness, no palpitations, no syncope - Respiratory Respiratory: no cough, no dyspnea, no wheezing, no excessive phlegm production - Gastrointestinal Gastrointestinal: as per HPI, diarrhea - Genitourinary Genitourinary: no change in urinary stream, no dysuria, no flank pain, no hematuria Menstruation: as per HPI, post hysterectomy (Total) - Musculoskeletal Musculoskeletal ROS IM: no numbness, no tingling - Integumentary Integumentary IM: no rash, no unusual bruising - Neurological Neurological ROS: no confusion, no convulsions, no focal weakness, no numbness, no tingling, no tremor(s) - Psychiatric Psychiatric: as per HPI, anxiety, depression - Endocrine Endocrine IM: as per HPI - Hematologic/Lymphatic Hematologic/Lymphatic: no easy bruising - Allergic/Immunologic Allergic/Immunologic: as per HPI - Constitutional Vitals: Temp Pulse Resp BP Pulse Ox 98.3 F 102 14 149/83 96 05/30/17 12:05 05/30/17 13:37 05/30/17 13:37 05/30/17 13:37 05/30/17 13:37 General appearance: Present: cooperative, A&O X 3, pleasant, no acute distress, obese, answers questions appropriately - Head Head exam: Present: atraumatic, normocephalic - Eye Eye exam: Present: PERRL, conjuntiva pink, sclera anicteric Pupils: Present: PERRL - ENT ENT exam: Present: normal exam - Neck Neck exam general surgery: Present: normal inspection, supple, trachea midline. Absent: lymphadenopathy - Respiratory Respiratory exam: Present: CTAB. Absent: accessory muscle use, rales, rhonchi, wheezes - Cardiovascular Cardiovascular exam: Present: +S1, +S2, tachycardia - GI/Abdominal GI/Abdominal exam: Present: normal bowel sounds, soft, no peritoneal signs. Absent: distended, tenderness - Rectal Rectal exam: Present: deferred - Additional comments: exam deferred. - Extremities Exam Extremities exam: Present: warm, radial pulses palpable and symmetrical. Absent : calf tenderness, cyanotic, pedal edema - Back Exam Back exam: Present: normal inspection - Neurological Exam Neurological exam: Present: CN II-XII intact, oriented X3, no focal deficits. Absent: pronater drift, facial droop, speech deficit - Psychiatric Psychiatric exam: Present: normal affect, normal mood - Skin Skin exam: Present: dry, intact Internal Med - H&P Results - Labs CBC & Chem 7: 05/30/17 12:44 05/30/17 12:44 Labs: Short CBC 05/30/17 Range/Units 12:44 WBC 6.1 (4.3-11.1) K/mcL Hgb 12.4 (11.5-15.4) g/dL Hct 39.2 (35.3-44.9) % Plt Count 235 (140-400) K/mcL Neutrophils # 3.9 (1.6-8.9) K/mcL BMP 05/30/17 12:44 Sodium 135 L Potassium 4.6 Chloride 104 Carbon Dioxide 23 BUN 11 Creatinine 0.76 Glucose 782 H* Calcium 8.9 Cardiac Enzymes 05/30/17 Range/Units 12:44 Troponin I < 0.03 (< 0.04) ng/mL Liver Function 05/30/17 Range/Units 12:44 Total Bilirubin 0.4 (0.3-1.0) mg/dL Direct Bilirubin 0.1 (0.0-0.2) mg/dL AST 29 (13-39) Units/L ALT 26 (7-52) Units/L Alkaline Phosphatase 79 (34-104) Units/L Albumin 3.6 (3.5-5.7) g/dL Urine 05/30/17 Range/Units 13:03 Urine Color Yellow (Yellow) Urine Clarity Clear (Clear) Urine pH 6.5 (5.0-8.0) pH Units Ur Specific [place] 1.027 H (1.010-1.025) Urine Protein Negative (Neg-Trace) mg/dL Urine Glucose (UA) >=1000 H (Normal) mg/dL - EKG Data EKG shows normal: sinus rhythm - EKG Data Prior EKG available for review: yes Interpretation IM: suggestive of ischemia EKG comments: 05/30/17 14:48 EKG dated 10/14/16 shows sinus rhythm with possible anterior myocardial infarction of indeterminate age. EKG dated 05/30/17 shows sinus tachycardia with moderate ST depression. - Impressions ITS Impressions Chest X-Ray 05/30/17 12:27 IMPRESSION: Alveolar or nodular density lateral lower left lung may reflect confluence of shadows measuring 10 mm overlying posterior left rib 10. Correlation with CT chest without or with IV contrast is recommended. D/ / Chao Washington / Chao Washington Interpreting Provider: Chao Washington - Diagnostic Studies Chest x-ray Additional comments: Impressions Chest X-Ray 05/30/17 12:27
[2017-05-30] MEDS ORDERED: Insulin LISPRO 300 UNITS/3 ML VIAL SQ SCH ×2 (16:30→21:00)
[2017-05-30] MEDS: Pantoprazole 40 MG VIAL IVP SCH (18:36)
[2017-05-30] MEDS: Insulin LISPRO 300 UNITS/3 ML VIAL SQ SCH ×2 (18:37→20:54)
[2017-05-30] MEDS ORDERED: NON-FORMULARY MEDICATION 1 EACH EACH (Simvastatin [Zocor] 10 MG) PO SCH (21:00)
[2017-05-30] MEDS: *HR* Heparin 5,000 UNIT/ML VIAL SQ SCH (21:05)
[2017-05-30] MEDS: (Buprenorphine Hcl/Naloxone Hcl [Suboxone 8 Mg-2 Mg S SL SCH (21:10)
[2017-05-31 00:59] LABS: Basophils % 0.6 %; Eosinophils # 0.1 K/mcL (0.0-0.6); Eosinophils % 1.9 %; Hematocrit 37.3 % (35.3-44.9); Hemoglobin 12.5 g/dL (11.5-15.4); Immature Granulocytes % 0.3 % (0-4); Lymphocytes # 2.7 K/mcL (0.6-4.6); Lymphocytes % 40.3 %; Mean Corpuscular HGB Conc 33.5 g/dL (31.6-35.5); Mean Corpuscular Hemoglobin 29.1 pg (28.0-33.3); Mean Corpuscular Volume 86.9 fL (83.0-100.0); Mean Platelet Volume 11.3 fL (9.4-12.4); Monocytes # 0.5 K/mcL (0.0-1.3); Monocytes % 7.3 %; Neutrophils # 3.3 K/mcL (1.6-8.9); Platelet Count 238 K/mcL (140-400); Red Blood Count 4.29 M/mcL (3.82-4.97); Red Cell Distribution Width 13.2 % (11.5-14.5); Segmented Neutrophils % 49.6 %
[2017-05-31 02:39] LABS: Alanine Aminotransferase 25 Units/L (7-52); Albumin 3.7 g/dL (3.5-5.7); Albumin/Globulin Ratio 1.5 (1.1-2.2); Alkaline Phosphatase 76 Units/L (34-104); Aspartate Amino Transferase 23 Units/L (13-39); BUN/Creatinine Ratio 16 (6-26); Bilirubin,Total 0.5 mg/dL (0.3-1.0); Blood Urea Nitrogen 9 mg/dL (6-20); Calcium 9.2 mg/dL (8.6-10.3); Carbon Dioxide 24 mEq/L (23-29); Chloride 108 mEq/L (98-107); Cholesterol 199 mg/dL (< 200); Globulin 2.5 g/dL (2.4-3.5); Glucose 177 mg/dL (70-105); HDL Cholesterol 33 mg/dL (40-59); LDL Cholesterol,Calculated 107 mg/dL (0-99); Magnesium 1.8 mg/dL (1.6-2.6); Osmolality,Calculated 295 (280-300); Potassium 3.3 mEq/L (3.5-5.1); Sodium 141 mEq/L (136-145); Total Protein 6.2 g/dL (6.4-8.9); Triglycerides 295 mg/dL (< 150); eGFR For African Americans > 60 (> 60); eGFR For Non-African Americans > 60 (> 60)
[2017-05-31] MEDS: *HR* Heparin 5,000 UNIT/ML VIAL SQ SCH ×3 (05:23→21:01)
[2017-05-31] MEDS ORDERED: Regadenoson 0.4 MG/5 ML SYRINGE IVP ONE (05:52)
[2017-05-31] MEDS: Aspirin Enteric Coated 81 MG Tablet PO SCH (08:46)
[2017-05-31] MEDS: Lisinopril 20 MG TABLET PO SCH (08:46)
[2017-05-31] MEDS: *HR* Glimepiride 2 MG TABLET PO SCH (08:46)
[2017-05-31] MEDS: (Buprenorphine Hcl/Naloxone Hcl [Suboxone 8 Mg-2 Mg S SL SCH (08:47)
[2017-05-31] MEDS: Pantoprazole 40 MG VIAL IVP SCH (08:47)
[2017-05-31] MEDS: Insulin LISPRO 300 UNITS/3 ML VIAL SQ SCH ×4 (08:47→21:05)
--- NOTE | 2017-05-31 16:03 | Internal Med Progress Note ---
Date of Encounter: 05/31/17 Time of Encounter: 11:30 - Assessment and plan (1) Chest pain Current Visit: Yes Status: Acute Assessment and plan: So far negative trop No acute EKG changes noticed currently CP free scheduled for stress test today Qualifiers: Chest pain type: other chest pain Qualified Code(s): R07.89 - Other chest pain; R07.8 - Other chest pain (2) Diarrhea Current Visit: Yes Status: Acute Assessment and plan: will check C.Diff Qualifiers: Diarrhea type: presumed infectious Qualified Code(s): R19.7 - Diarrhea, unspecified (3) Hyperglycemia Current Visit: Yes Status: Acute Assessment and plan: resumed home meds on ISS may need to go home on Levemir will check HbA1C (4) GERD (gastroesophageal reflux disease) Current Visit: Yes Status: Chronic Assessment and plan: on ppi Qualifiers: Esophagitis presence: without esophagitis Qualified Code(s): K21.9 - Gastro -esophageal reflux disease without esophagitis (5) HLD (hyperlipidemia) Current Visit: Yes Status: Chronic Assessment and plan: on statin Qualifiers: Hyperlipidemia type: pure hypercholesterolemia Qualified Code(s): E78.00 - Pure hypercholesterolemia, unspecified; E78.0 - Pure hypercholesterolemia (6) Hypertension Current Visit: No Status: Chronic Assessment and plan: resumed home meds on hydralazine IV prn Qualifiers: Hypertension type: essential hypertension Qualified Code(s): I10 - Essential (primary) hypertension - Subjective Interval history: Ms. Kirkpatrick is a 51 year old female w/PMH of diabetes, GERD, HLD, and HTN presents from the ED with chief complaint of chest pain that began this morning at approximately 11:30 and presented as intermittent and centralized chest pressure with radiation to her left arm. Pt was seen and examined at bed side. Denied any CP now. - Constitutional Vitals: Temp Pulse Resp BP Pulse Ox 98.1 F 98 16 106/68 95 05/31/17 15:47 05/31/17 15:47 05/31/17 15:47 05/31/17 15:47 05/31/17 15:47 General appearance: Present: cooperative, A&O X 3, pleasant, no acute distress, obese, answers questions appropriately - Head Head exam: Present: atraumatic, normal inspection - Neck Neck exam general surgery: Present: supple - Respiratory Respiratory exam: Present: decreased breath sounds. Absent: rales, respiratory distress, rhonchi, wheezes - Cardiovascular Cardiovascular exam: Present: RRR, +S1, +S2. Absent: tachycardia - GI/Abdominal GI/Abdominal exam: Present: normal bowel sounds, soft. Absent: rebound, rigid, tenderness - Extremities Exam Extremities exam: Absent: calf tenderness, pedal edema, tenderness - Back Exam Back exam: Absent: CVA tenderness (L), CVA tenderness (R) - Neurological Exam Neurological exam: Present: alert, oriented X3 - Psychiatric Psychiatric exam: Present: normal affect, normal mood Internal Medicine: Result - Labs CBC & Chem 7: 06/01/17 03:47 06/01/17 03:47 Labs: Short CBC 05/31/17 Range/Units 00:42 WBC 6.7 (4.3-11.1) K/mcL Hgb 12.5 (11.5-15.4) g/dL Hct 37.3 (35.3-44.9) % Plt Count 238 (140-400) K/mcL Neutrophils # 3.3 (1.6-8.9) K/mcL BMP 05/31/17 00:42 Sodium 141 Potassium 3.3 L D Chloride 108 H Carbon Dioxide 24 BUN 9 Creatinine 0.58 L Glucose 177 H Calcium 9.2 Cardiac Enzymes 05/30/17 05/31/17 Range/Units 18:05 00:42 Troponin I < 0.03 < 0.03 (< 0.04) ng/mL Liver Function 05/31/17 Range/Units 00:42 Total Bilirubin 0.5 (0.3-1.0) mg/dL AST 23 (13-39) Units/L ALT 25 (7-52) Units/L Alkaline Phosphatase 76 (34-104) Units/L Albumin 3.7 (3.5-5.7) g/dL Consult Discharge Plan - Plan Referrals: Olivia Nunez MD [Primary Care Provider] -
[2017-05-31 17:01] LABS: Estimated Average Glucose 372 mg/dl; Hemoglobin A1C 14.6 %
[2017-05-31] MEDS: Insulin DETEMIR 100 UNIT/ML X5UNITS SQ SCH (21:03)
[2017-05-31] MEDS: Buprenorphine Hcl/Naloxone Hcl [Suboxone 8 Mg-2 Mg] SL SCH (21:04)
[2017-06-01 04:58] LABS: Basophils % 0.5 %; Eosinophils # 0.1 K/mcL (0.0-0.6); Eosinophils % 1.4 %; Hematocrit 37.9 % (35.3-44.9); Hemoglobin 12.2 g/dL (11.5-15.4); Immature Granulocytes % 0.2 % (0-4); Lymphocytes # 3.1 K/mcL (0.6-4.6); Lymphocytes % 37.5 %; Mean Corpuscular HGB Conc 32.2 g/dL (31.6-35.5); Mean Corpuscular Hemoglobin 28.9 pg (28.0-33.3); Mean Corpuscular Volume 89.8 fL (83.0-100.0); Mean Platelet Volume 11.8 fL (9.4-12.4); Monocytes # 0.5 K/mcL (0.0-1.3); Monocytes % 6.1 %; Neutrophils # 4.5 K/mcL (1.6-8.9); Platelet Count 252 K/mcL (140-400); Red Blood Count 4.22 M/mcL (3.82-4.97); Red Cell Distribution Width 13.2 % (11.5-14.5); Segmented Neutrophils % 54.3 %
[2017-06-01 05:15] LABS: Alanine Aminotransferase 25 Units/L (7-52); Albumin 3.5 g/dL (3.5-5.7); Albumin/Globulin Ratio 1.4 (1.1-2.2); Alkaline Phosphatase 70 Units/L (34-104); Aspartate Amino Transferase 23 Units/L (13-39); BUN/Creatinine Ratio 15 (6-26); Bilirubin,Total 0.4 mg/dL (0.3-1.0); Blood Urea Nitrogen 8 mg/dL (6-20); Calcium 8.8 mg/dL (8.6-10.3); Carbon Dioxide 22 mEq/L (23-29); Chloride 108 mEq/L (98-107); Globulin 2.5 g/dL (2.4-3.5); Glucose 218 mg/dL (70-105); Osmolality,Calculated 293 (280-300); Potassium 3.6 mEq/L (3.5-5.1); Sodium 139 mEq/L (136-145); eGFR For African Americans > 60 (> 60); eGFR For Non-African Americans > 60 (> 60)
[2017-06-01] MEDS: *HR* Heparin 5,000 UNIT/ML VIAL SQ SCH (05:45)
[2017-06-01 10:25] VITALS: BP 100/61
[2017-06-01] MEDS: Insulin LISPRO 300 UNITS/3 ML VIAL SQ SCH ×2 (10:32→12:16)
[2017-06-01] MEDS: Buprenorphine Hcl/Naloxone Hcl [Suboxone 8 Mg-2 Mg] SL SCH (10:33)
[2017-06-01] MEDS: *HR* Glimepiride 2 MG TABLET PO SCH (10:38)
[2017-06-01] MEDS: Aspirin Enteric Coated 81 MG Tablet PO SCH (10:38)
[2017-06-01] MEDS: Lisinopril 20 MG TABLET PO SCH (10:38)
[2017-06-01] MEDS: Insulin DETEMIR 100 UNIT/ML X5UNITS SQ SCH (10:41)
--- NOTE | 2017-06-01 12:02 | Discharge Summary ---
- NOTES TO OUTPATIENT PROVIDER Notes to Outpatient Provider: You HbA1C 14.6 which means your blood sugars are running so high above 400 constantly. So please watch your diet. Increased your Amaryl to 4mg. Start taking Insulin Levemir 20 U BID, if your fasting blood sugars are still above > 130 please keep adding 2 units to your regular regimen Date of Encounter: 06/01/17 Time of Encounter: 11:50 - Discharge Diagnosis (1) Chest pain Priority: Primary Status: Acute Qualifiers: Chest pain type: other chest pain Qualified Code(s): R07.89 - Other chest pain; R07.8 - Other chest pain (2) Diarrhea Priority: Primary Status: Acute Comments: ruled out C. Diff Qualifiers: Diarrhea type: presumed infectious Qualified Code(s): R19.7 - Diarrhea, unspecified (3) Hyperglycemia Priority: Primary Status: Acute (4) GERD (gastroesophageal reflux disease) Priority: Secondary Status: Chronic Qualifiers: Esophagitis presence: without esophagitis Qualified Code(s): K21.9 - Gastro -esophageal reflux disease without esophagitis (5) HLD (hyperlipidemia) Priority: Secondary Status: Chronic Qualifiers: Hyperlipidemia type: pure hypercholesterolemia Qualified Code(s): E78.00 - Pure hypercholesterolemia, unspecified; E78.0 - Pure hypercholesterolemia (6) Hypertension Priority: Secondary Status: Chronic Qualifiers: Hypertension type: essential hypertension Qualified Code(s): I10 - Essential (primary) hypertension Hospital course: Ms. Kirkpatrick is a 51 year old female w/PMH of diabetes, GERD, HLD, and HTN presents from the ED with chief complaint of chest pain that began this morning at approximately 11:30 and presented as intermittent and centralized chest pressure with radiation to her left arm. Pt was admitted in the hospital, placed the pt on tele and check serial troponin. All her troponin were negative. Her stress test came back as negative for an ischemia. She does have severe hyperglycemia and uncontrolled DM2 with HbA1C 14.6. Counseled the pt about diet modifications and started her on Levemir + also inc Amaryl to 4mg. - Time Spent with Patient Total time spent providing and/or coordinating discharge services: - Discharge Medications Home Medications: Aspirin Enteric Coated [Aspirin EC] 81 mg PO DAILY 08/07/16 [History] Estradiol [Estrace] 1 mg PO DAILY 08/07/16 [History] Sertraline [Zoloft] 50 mg PO DAILY 08/07/16 [History] Simvastatin [Zocor] 10 mg PO HS 08/07/16 [History] EPINEPHrine [Epipen] 0.3 mg IM ONCE PRN #1 kit 08/09/16 [Rx] Buprenorphine HCl/Naloxone HCl [Suboxone 8 mg-2 mg Sl Film] 1 each SL BID [History] Lisinopril [Zestril] 20 mg PO DAILY 10/14/16 [History] SitaGLIPtin [Januvia] 100 mg PO DAILY 05/30/17 [History] Glimepiride [Amaryl] 4 mg PO QAM 30 Days tablet 06/01/17 [Rx] Insulin DETEMIR [Levemir Flextouch] 20 unit SQ BID #2 insuln.pen 06/01/17 [Rx] Allergies/Adverse Reactions: 3 Allergy/AdvReac Type Severity Reaction Status Date / Time sulfamethoxazole AdvReac Diarrhea Verified 05/30/17 12:51 [From Bactrim] trimethoprim [From Bactrim] AdvReac Diarrhea Verified 05/30/17 12:51 Date of admission: 05/30/17 15:20 Primary care physician: Olivia Nunez Consults: 05/30/17 18:34 Consult to Nutrition [CONS] Routine Comment: Consulting Provider: NUTRITION Reason for Dietary Consult: MST Score - Constitutional Vitals: Temp Pulse Resp BP Pulse Ox 98.0 F 74 17 100/61 97 06/01/17 10:23 06/01/17 10:23 06/01/17 10:23 06/01/17 10:23 06/01/17 10:23 General appearance: Present: cooperative, A&O X 3, pleasant, no acute distress, obese, answers questions appropriately - Neck Neck exam general surgery: Present: supple - Respiratory Respiratory exam: Present: decreased breath sounds. Absent: rales, respiratory distress, rhonchi - Cardiovascular Cardiovascular exam: Present: RRR, +S1, +S2. Absent: tachycardia - GI/Abdominal GI/Abdominal exam: Present: normal bowel sounds, soft. Absent: rebound, rigid, tenderness - Extremities Exam Extremities exam: Absent: calf tenderness, pedal edema, tenderness - Back Exam Back exam: Absent: CVA tenderness (L), CVA tenderness (R) - Neurological Exam Neurological exam: Present: alert, oriented X3 - Psychiatric Psychiatric exam: Present: normal affect, normal mood - Skin Skin exam: Absent: rash - Patient Status Disposition: Home, Self-Care Condition: Fair - Discharge Instructions Follow Up With: Olivia Nunez MD [Primary Care Provider] - - Diet and Activity Activity: increase activity as tolerated Diet: diabetic diet, low salt diet
--- NOTE | 2017-06-04 16:17 | Electrocardiograph Report ---
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
== END 2017-06-01 14:04 | disposition home or self-care (01) ==
LOC: EMEROO 12:02 → 2ANU 12:02
PROVIDERS: ADMIT Student in an Organized Health Care Education/Training Program; ATTEND Family Medicine

== ENCOUNTER 2021-01-24 16:23 | Observation (INO) ==
[2021-01-24] MEDS ORDERED: 0.9 % Sodium Chloride 500 ML IVC ONE (17:57)
[2021-01-24] MEDS ORDERED: Nitroglycerin 0.4 MG TAB.SUBL SL PRN (17:57)
[2021-01-24] MEDS ORDERED: Ondansetron 4 MG/2 ML VIAL IVP ONE (17:59)
[2021-01-24 18:17] LABS: Basophils % 0.5 %; Eosinophils # 0.1 K/mcL (0.0-0.6); Eosinophils % 0.8 %; Hematocrit 42.8 % (35.3-44.9); Hemoglobin 14.4 g/dL (11.5-15.4); Immature Granulocytes % 0.1 % (0-4); Lymphocytes # 2.7 K/mcL (0.6-4.6); Lymphocytes % 31.9 %; Mean Corpuscular HGB Conc 33.6 g/dL (31.6-35.5); Mean Corpuscular Hemoglobin 29.7 pg (28.0-33.3); Mean Corpuscular Volume 88.2 fL (83.0-100.0); Mean Platelet Volume 11.2 fL (9.4-12.4); Monocytes # 0.7 K/mcL (0.0-1.3); Monocytes % 7.7 %; Platelet Count 337 K/mcL (140-400); Red Blood Count 4.85 M/mcL (3.82-4.97); Red Cell Distribution Width 12.9 % (11.5-14.5); White Blood Count 8.4 K/mcL (4.3-11.1)
[2021-01-24 18:40] LABS: BUN/Creatinine Ratio 20 (6-26); Blood Urea Nitrogen 14 mg/dL (6-20); Calcium 9.4 mg/dL (8.6-10.3); Carbon Dioxide 26 mEq/L (23-29); Chloride 103 mEq/L (98-107); Glucose 247 mg/dL (70-105); Osmolality,Calculated 297 (280-300); Potassium 3.5 mEq/L (3.5-5.1); Sodium 139 mEq/L (136-145); Troponin I < 0.03 ng/mL (< 0.04); eGFR For African Americans > 60 (> 60); eGFR For Non-African Americans > 60 (> 60)
[2021-01-24 18:41] LABS: Bacteria,Urine Few per hpf (None-Few); Bilirubin,Urine Negative (Negative); Blood,Urine Negative (Negative); Clarity,Urine Clear (Clear); Color,Urine Yellow (Yellow); Glucose,Urine (UA) >=1000 mg/dL (Normal); Hyaline Casts,Urine Few per lpf (None Seen); Ketones,Urine 40 mg/dL (Negative); Leukocyte Esterase,Urine Large (Negative); Mucus,Urine Few per lpf (None-Few); Nitrite,Urine Negative (Negative); PH,Urine 5.5 pH Units (5.0-8.0); Protein,Urine Trace mg/dL (Neg-Trace); Specific Gravity,Urine > 1.030 (1.010-1.025); Squamous Epithelial Cell,Urine Moderate per hpf (None-Few); Urobilinogen,Urine Normal (Normal); WBC,Urine 30-50 per hpf (0-3)
[2021-01-24 18:47] LABS: Alanine Aminotransferase 12 Units/L (7-52); Albumin/Globulin Ratio 1.4 (1.1-2.2); Alkaline Phosphatase 66 Units/L (34-104); Aspartate Amino Transferase 11 Units/L (13-39); Bilirubin,Direct 0.1 mg/dL (0.0-0.2); Bilirubin,Indirect 0.5 mg/dL (0.0-1.0); Bilirubin,Total 0.6 mg/dL (0.3-1.0); Globulin 2.8 g/dL (2.4-3.5); Lipase 9 Units/L (11-82); Total Protein 6.8 g/dL (6.4-8.9)
[2021-01-24 19:37] LABS: Influenza A PCR Negative (Negative); Influenza B PCR Negative (Negative); Resp. Syncytial Virus PCR Negative (Negative)
[2021-01-24 19:38] LABS: SARS-CoV-2 by PCR (In House) Negative (Negative)
[2021-01-24] MEDS ORDERED: cefTRIAXone 1,000 MG in 0.9 % Sodium Chloride Mini Bag 100 ML IVPB ONE (20:55)
[2021-01-24] MEDS ORDERED: Naloxone 0.4 MG/ML INJ IVP PRN (23:15)
[2021-01-24] MEDS ORDERED: Ondansetron ODT 4 MG TAB.RAPDIS SL PRN (23:15)
[2021-01-24] MEDS ORDERED: Melatonin 3 MG TABLET PO PRN (23:15)
[2021-01-25] MEDS: Acetaminophen 325 MG TABLET PO PRN ×2 (00:04→09:04)
[2021-01-25 00:40] LABS: Basophils % 0.4 %; Eosinophils # 0.1 K/mcL (0.0-0.6); Hematocrit 40.2 % (35.3-44.9); Hemoglobin 13.4 g/dL (11.5-15.4); Immature Granulocytes % 0.3 % (0-4); Lymphocytes # 2.8 K/mcL (0.6-4.6); Lymphocytes % 35.9 %; Mean Corpuscular HGB Conc 33.3 g/dL (31.6-35.5); Mean Corpuscular Hemoglobin 29.6 pg (28.0-33.3); Mean Corpuscular Volume 88.9 fL (83.0-100.0); Mean Platelet Volume 11.2 fL (9.4-12.4); Monocytes # 0.6 K/mcL (0.0-1.3); Monocytes % 8.2 %; Neutrophils # 4.3 K/mcL (1.6-8.9); Platelet Count 335 K/mcL (140-400); Red Blood Count 4.52 M/mcL (3.82-4.97); Segmented Neutrophils % 54.2 %; White Blood Count 7.8 K/mcL (4.3-11.1)
[2021-01-25 00:55] LABS: Alanine Aminotransferase 12 Units/L (7-52); Albumin 3.8 g/dL (3.5-5.7); Albumin/Globulin Ratio 1.5 (1.1-2.2); Alkaline Phosphatase 62 Units/L (34-104); Aspartate Amino Transferase 10 Units/L (13-39); BUN/Creatinine Ratio 20 (6-26); Bilirubin,Total 0.5 mg/dL (0.3-1.0); Blood Urea Nitrogen 14 mg/dL (6-20); Calcium 9.2 mg/dL (8.6-10.3); Carbon Dioxide 26 mEq/L (23-29); Chloride 104 mEq/L (98-107); Globulin 2.6 g/dL (2.4-3.5); Glucose 306 mg/dL (70-105); Magnesium 1.6 mg/dL (1.6-2.6); Osmolality,Calculated 300 (280-300); Potassium 3.2 mEq/L (3.5-5.1); Sodium 139 mEq/L (136-145); Total Protein 6.4 g/dL (6.4-8.9); eGFR For African Americans > 60 (> 60); eGFR For Non-African Americans > 60 (> 60)
[2021-01-25] MEDS ORDERED: *HR* Dextrose 50 % in Water (Syg) 50 ML SYRINGE IVP PRN (03:22)
[2021-01-25] MEDS ORDERED: D5% in Water 1,000 ML IVC PRN (03:22)
[2021-01-25] MEDS ORDERED: Dextrose Gel 15 GM/37.5 ML TUBE PO PRN ×2 (03:22)
[2021-01-25] MEDS ORDERED: Regadenoson 0.4 MG/5 ML SYRINGE IVP ONE (06:18)
[2021-01-25] MEDS: Insulin LISPRO 300 UNITS/3 ML VIAL SUBQ SCH ×2 (08:53→12:05)
[2021-01-25] MEDS ORDERED: Insulin DETEMIR 100 UNIT/ML X5UNITS SUBQ SCH (09:00)
[2021-01-25] MEDS ORDERED: *HR* Glimepiride 2 MG TABLET PO SCH (09:00)
[2021-01-25 11:00] VITALS: BP 128/80; PULSE 88; TEMP 98.1; O2SAT 95
[2021-01-25 12:09] LABS: Estimated Average Glucose 226 mg/dl; Hemoglobin A1C 9.5 %
[2021-01-25] MEDS ORDERED: Insulin LISPRO 300 UNITS/3 ML VIAL SUBQ SCH (21:00)
[2021-01-25] MEDS ORDERED: cefTRIAXone 1,000 MG in Water for inj. (sterile) 10 ML IVP SCH (22:00)
== END 2021-01-25 12:40 | disposition home or self-care (01) ==
LOC: EMEROOARM 16:23 → 2ANU 16:23 → SUATTDRO 22:37 → 2ANU 23:32
PROVIDERS: ADMIT Internal Medicine; ATTEND Nurse Practitioner

== ENCOUNTER 2021-10-19 14:19 | Observation (INO) ==
[2021-10-19 15:31] LABS: Basophils # 0.1 K/mcL (0.0-0.2); Basophils % 0.7 %; Eosinophils # 0.2 K/mcL (0.0-0.6); Eosinophils % 3.1 %; Hematocrit 37.9 % (35.3-44.9); Hemoglobin 12.7 g/dL (11.5-15.4); Immature Granulocytes % 0.1 % (0-4); Lymphocytes # 2.4 K/mcL (0.6-4.6); Lymphocytes % 31.8 %; Mean Corpuscular HGB Conc 33.5 g/dL (31.6-35.5); Mean Corpuscular Hemoglobin 29.3 pg (28.0-33.3); Mean Corpuscular Volume 87.3 fL (83.0-100.0); Mean Platelet Volume 10.6 fL (9.4-12.4); Monocytes # 0.4 K/mcL (0.0-1.3); Monocytes % 5.3 %; Neutrophils # 4.4 K/mcL (1.6-8.9); Platelet Count 281 K/mcL (140-400); Red Blood Count 4.34 M/mcL (3.82-4.97); Red Cell Distribution Width 13.1 % (11.5-14.5); White Blood Count 7.5 K/mcL (4.3-11.1)
[2021-10-19 15:38] LABS: Prothrombin Time 11.5 Seconds (9.4-12.1)
[2021-10-19] MEDS ORDERED: Morphine Sulfate 2 MG/ML SYRINGE IVP ONE (15:40)
[2021-10-19] MEDS ORDERED: Ondansetron 4 MG/2 ML VIAL IVP PRN (15:40)
[2021-10-19 15:41] LABS: Activated Partial Thrombo Time 31.2 Seconds (26.0-36.0)
[2021-10-19] MEDS ORDERED: Iopamidol - 370 500 ML MLS IVP ONE (15:41)
[2021-10-19 15:57] LABS: BUN/Creatinine Ratio 13 (6-26); Blood Urea Nitrogen 9 mg/dL (6-20); Calcium 9.2 mg/dL (8.6-10.3); Carbon Dioxide 27 mEq/L (23-29); Chloride 109 mEq/L (98-107); Glucose 168 mg/dL (70-105); Osmolality,Calculated 299 (280-300); Potassium 3.2 mEq/L (3.5-5.1); Sodium 143 mEq/L (136-145); Troponin I < 0.03 ng/mL (< 0.04); eGFR For African Americans > 60 (> 60); eGFR For Non-African Americans > 60 (> 60)
[2021-10-19 16:38] LABS: Influenza A PCR Negative (Negative); Influenza B PCR Negative (Negative); Resp. Syncytial Virus PCR Negative (Negative)
[2021-10-19 16:45] LABS: SARS-CoV-2 by PCR (In House) Negative (Negative)
[2021-10-19] MEDS: Nitroglycerin 0.4 MG TAB.SUBL SL PRN (18:12)
[2021-10-19] MEDS ORDERED: Ipratropium/Albuterol Neb 3 ML IH ONE (18:48)
[2021-10-19] MEDS ORDERED: Acetaminophen 325 MG TABLET PO PRN (19:35)
[2021-10-19] MEDS ORDERED: Ondansetron ODT 4 MG TAB.RAPDIS SL PRN (19:35)
[2021-10-19] MEDS ORDERED: *HR* OxyCODONE Immed Rel 5 MG TABLET PO PRN (19:35)
[2021-10-19] MEDS ORDERED: Melatonin 3 MG TABLET PO PRN (19:35)
[2021-10-19] MEDS ORDERED: Naloxone 0.4 MG/ML INJ IVP PRN (19:35)
[2021-10-19] MEDS ORDERED: *HR* HYDROcodone/Acet 5/325 mg TABLET PO PRN (19:35)
[2021-10-19] MEDS ORDERED: *HR* Dextrose 50 % in Water (Syg) 50 ML SYRINGE IVP PRN (19:38)
[2021-10-19] MEDS ORDERED: D5% in Water 1,000 ML IVC PRN (19:38)
[2021-10-19] MEDS ORDERED: Dextrose Gel 15 GM/37.5 ML TUBE PO PRN ×2 (19:38)
[2021-10-19] MEDS ORDERED: 0.9 % Sodium Chloride 1,000 ML IVC SCH (19:45)
[2021-10-20] MEDS: Insulin LISPRO 300 UNITS/3 ML VIAL SUBQ SCH ×2 (00:24→06:30)
[2021-10-20 03:14] LABS: Hematocrit 39.1 % (35.3-44.9); Hemoglobin 12.6 g/dL (11.5-15.4); Mean Corpuscular HGB Conc 32.2 g/dL (31.6-35.5); Mean Corpuscular Hemoglobin 28.9 pg (28.0-33.3); Mean Corpuscular Volume 89.7 fL (83.0-100.0); Mean Platelet Volume 11.1 fL (9.4-12.4); Platelet Count 268 K/mcL (140-400); Red Blood Count 4.36 M/mcL (3.82-4.97); Red Cell Distribution Width 13.1 % (11.5-14.5); White Blood Count 6.5 K/mcL (4.3-11.1)
[2021-10-20 03:26] LABS: Estimated Average Glucose 209 mg/dl; Hemoglobin A1C 8.9 %
[2021-10-20 03:32] LABS: BUN/Creatinine Ratio 11 (6-26); Blood Urea Nitrogen 8 mg/dL (6-20); Carbon Dioxide 30 mEq/L (23-29); Chloride 109 mEq/L (98-107); Chol/HDL Ratio 3.6 (0-4.9); Cholesterol 145 mg/dL (< 200); Glucose 147 mg/dL (70-105); HDL Cholesterol 40 mg/dL (40-59); LDL Cholesterol,Calculated 74 mg/dL (< 100); Magnesium 1.7 mg/dL (1.6-2.6); Osmolality,Calculated 301 (280-300); Phosphorous 4.4 mg/dL (2.7-4.5); Potassium 3.5 mEq/L (3.5-5.1); Sodium 145 mEq/L (136-145); Triglycerides 154 mg/dL (< 150); eGFR For African Americans > 60 (> 60); eGFR For Non-African Americans > 60 (> 60)
[2021-10-20] MEDS ORDERED: Regadenoson 0.4 MG/5 ML SYRINGE IVP ONE (06:29)
[2021-10-20] MEDS: Nitroglycerin 0.4 MG TAB.SUBL SL PRN (08:44)
[2021-10-20] MEDS ORDERED: Aspirin 81 MG TAB.CHEW PO SCH (09:00)
[2021-10-20 11:34] VITALS: BP 130/75; PULSE 74; TEMP 98.1; O2SAT 97
== END 2021-10-20 14:00 | disposition home or self-care (01) ==
LOC: 3BNU 14:19 → EMEROOARM 14:19 → SUATTDRO 19:44 → 3BNU 20:42
PROVIDERS: ADMIT Internal Medicine; ATTEND Registered Nurse